=== PATIENT | female | born 1995 | race Caucasian/White ===

== ENCOUNTER 2020-05-11 15:41 | Emergency (ER) | payer OTHER, SELFPAY ==
[2020-05-11 15:55] VITALS: BP 142/75; PULSE 98; RESP 14; TEMP 36.8; O2SAT 95; BMI 40.6
--- NOTE | 2020-05-11 16:15 | DI.US.S_ITS ---
PROCEDURE: US OB <= 14 WEEKS FETUS INDICATIONS: preg bleeding OUTSIDE/PRIOR DATING DATA: Last menstrual period (LMP): 03/15/2020 LMP-based estimated date of delivery (NEHEMIAS): 12/30/2020 TECHNIQUE: Real-time scanning was performed of the fetus and maternal pelvic organs, with image documentation. Endovaginal scanning was also performed to better visualize the fetus and maternal ovaries. COMPARISON: None. FINDINGS: Embryo: Single living intrauterine with a pole present. The crown-rump length measures 1.09 cm corresponding with an estimated gestational age of 7 weeks 1 day. heart rate is 139 beats per minute. No perigestational hemorrhage identified. Measurement variability in dating: +/- 4 weeks by LMP, +/- 7 days by mean sac diameter (use before 6 weeks gestation if crown-rump length not able to be measured), +/- 5 days by crown-rump length (up to 8 weeks 6 days gestation), +/- 7 days by crown-rump length (up to 13 weeks 6 days gestation). Maternal organs: Normal grayscale and Doppler appearance of the ovaries. The right ovary measures 4.1 x 3.4 x 2.8 cm. The left ovary measures 3.0 x 2.6 x 1.9 cm . Limited images through the kidneys demonstrate no hydronephrosis. Right kidney length of 10.8 cm. IMPRESSION: Single living intrauterine . Estimated age of 7 weeks 1 day by today's crown-rump length. heart rate of 139 beats per minute. Dictated by: Maurice Carreon M.D. on 05/11/2020 at 16:54 Approved by: Maurice Carreon M.D. on 05/11/2020 at 16:57
[2020-05-11 16:20] LABS: Bacteria Urine Many (>30); Culture Indicated Urine Cult Not Indicated; RBC Urine 0-1/HPF (0-5/HPF); Squamous Epithelial Cell Urine 10-30 /HPF (0-5/HPF); WBC Urine 1-5/HPF (0-5/HPF)
--- NOTE | 2020-05-11 16:51 | ED.FEMALEGU ---
HPI - Female Genitourinary General Chief complaint: Vaginal Bleeding Stated complaint: 7wks preg, spotting, cramping, back pain Time Seen by Provider: 05/11/20 16:05 Source: patient Mode of arrival: Ambulatory Limitations: no limitations History of Present Illness HPI Narrative: Patient is a 25-year-old female presenting with vaginal spotting and cramping that started today. she states that she is followed at the [facility]. She required fertility medication but not IVF or IUI. Complaint: vaginal bleeding Related Data Allergies Allergy/AdvReac Type Severity Reaction Status Date / Time No Known Drug Allergies Allergy Verified 05/11/20 15:55 Review of Systems Review of Systems Narrative: GENERAL: Denies chills, fatigue, malaise, fever, sweats, travel HEENT: Denies sinus pain, ear pain, sore throat, difficulty swallowing, neck pain RESPIRATORY: Denies dyspnea, cough, wheezing, hemoptysis, sputum. CARDIOVASCULAR: Denies chest pain, palpitations, orthopnea, edema GASTROINTESTINAL: Denies nausea, vomiting, abdominal pain, diarrhea, constipation, melena. PARI MUTUEL CLERK: See HPI : Denies dysuria, frequency, incontinence, hematuria, urinary retention, flank pain. MUSCULOSKELETAL: Denies weakness, joint pain, or bony pain SKIN: No rash, no erythema, no pruritus NEUROLOGIC: Denies weakness, dizziness, headache, numbness, change in speech, confusion PSYCHIATRIC: No concerning psychosocial issues. 12 point review of systems is negative except for those stated above and HPI Patient History Medical History Infertility (Acute) alcohol intake frequency: holidays/special occasions only Substance Use Type: does not use Exam Initial Vital Signs Initial Vital Signs: Vital Signs Temperature 98.3 F 05/11/20 15:55 Pulse Rate 98 H 05/11/20 15:55 Respiratory Rate 14 05/11/20 15:55 Blood Pressure 142/75 H 05/11/20 15:55 Pulse Oximetry 95 05/11/20 15:55 GENERAL: Overweight well-appearing young female HEENT: Head atraumatic,EOMI, pupils reactive, face symmetric, moist mucous membranes CARDIOVASCULAR: Regular rate and rhythm without murmurs, rubs or gallops. RESPIRATORY: Breath sounds equal bilaterally, no wheezes rales or rhonchi. ABDOMEN: Soft, nontender. Normoactive bowel sounds all 4 quadrants. No guarding or rebound. EXTREMITIES: Normal range of motion, no clubbing or edema. Neurovascularly intact NEUROLOGICAL: Alert and oriented x4.Normal gait and speech. SKIN: Warm, dry, no laceration, no petechiae, no rashes or lesions. Course Orders Ordered: ED Orders 05/11/20 15:56 Urine Microscopic Stat 05/11/20 16:15 US OB <= 14 weeks fetus Stat 05/11/20 16:55 ABO RH Type Stat Complete Blood Count AUTO DIFF Stat Comprehensive Metabolic Panel Stat HCG Quantitative /Beta subunit Stat Vital Signs Vital signs: Vital Signs - 8 hr 05/11/20 15:55 Temperature 98.3 F Pulse Rate 98 H Respiratory Rate 14 Blood Pressure 142/75 H Pulse Oximetry 95 MDM - Female Genitourinary Lab Data Attestation: I reviewed the patient's lab results. Result diagrams: 05/11/20 16:55 05/11/20 16:55 Labs: Lab Results 05/11/20 05/11/20 05/11/20 Range/Units 15:56 16:55 16:55 WBC 10.1 (4.5-11.0) X10^3/uL RBC 4.48 (4.0-5.2) X10^6/uL Hgb 12.6 (12.0-16.0) g/dL Hct 37.2 (36-46) % MCV 83.0 (80-100) fL MCH 28.0 (26-34) PG MCHC 33.8 (30-36) % RDW 14.3 (11.6-14.8) % Plt Count 229 (150-400) X10^3/uL Neut % (Auto) 65.1 (50-75) % Lymph % (Auto) 24.3 L (25-40) % [place] % (Auto) 8.8 (3-14) % Eos % (Auto) 0.8 L (2-4) % Baso % (Auto) 1.0 (0-2) % Neut # (Auto) 6500 (1223-9168) /uL Lymph # (Auto) 2400 (4056-8520) /uL [place] # (Auto) 900 (0-900) /uL Eos # (Auto) 100 (0-450) /uL Baso # (Auto) 100 (0-100) /uL Sodium 135 L (137-145) mmol/L Potassium 3.7 (3.4-5.1) mmol/L Chloride 105 (98-107) mmol/L Carbon Dioxide 24 (22-32) mmol/L BUN 9 (7-17) mg/dL Creatinine 0.52 (0.52-1.04) mg/dL Estimated GFR > 60.0 (>60) mL/min BUN/Creatinine Ratio 17.3 (6-22) Glucose 96 (70-100) mg/dL Calcium 9.1 (8.4-10.2) mg/dL Total Bilirubin 0.3 (0.2-1.3) mg/dL AST 34 (14-36) IU/L ALT 20 (<35) IU/L Alkaline Phosphatase 71 (38-126) U/L Total Protein 6.7 (6.3-8.2) g/dL Albumin 3.8 (3.5-5.0) g/dL Globulin 2.9 (1.7-4.1) g/dL Albumin/Globulin Ratio 1.3 (1.0-2.8) HCG, Quant 29277 mIU/mL Urine RBC 0-1/hpf (0-5/HPF) Urine WBC 1-5/hpf (0-5/HPF) Ur Squamous Epith Cells 10-30 /hpf H (0-5/HPF) Urine Bacteria Many (>30) H (None) Ur Culture Indicated? Cult not indicated Blood Type 05/11/20 Range/Units 16:55 WBC (4.5-11.0) X10^3/uL RBC (4.0-5.2) X10^6/uL Hgb (12.0-16.0) g/dL Hct (36-46) % MCV (80-100) fL MCH (26-34) PG MCHC (30-36) % RDW (11.6-14.8) % Plt Count (150-400) X10^3/uL Neut % (Auto) (50-75) % Lymph % (Auto) (25-40) % [place] % (Auto) (3-14) % Eos % (Auto) (2-4) % Baso % (Auto) (0-2) % Neut # (Auto) (9183-1479) /uL Lymph # (Auto) (2518-2087) /uL [place] # (Auto) (0-900) /uL Eos # (Auto) (0-450) /uL Baso # (Auto) (0-100) /uL Sodium (137-145) mmol/L Potassium (3.4-5.1) mmol/L Chloride (98-107) mmol/L Carbon Dioxide (22-32) mmol/L BUN (7-17) mg/dL Creatinine (0.52-1.04) mg/dL Estimated GFR (>60) mL/min BUN/Creatinine Ratio (6-22) Glucose (70-100) mg/dL Calcium (8.4-10.2) mg/dL Total Bilirubin (0.2-1.3) mg/dL AST (14-36) IU/L ALT (<35) IU/L Alkaline Phosphatase (38-126) U/L Total Protein (6.3-8.2) g/dL Albumin (3.5-5.0) g/dL Globulin (1.7-4.1) g/dL Albumin/Globulin Ratio (1.0-2.8) HCG, Quant mIU/mL Urine RBC (0-5/HPF) Urine WBC (0-5/HPF) Ur Squamous Epith Cells (0-5/HPF) Urine Bacteria (None) Ur Culture Indicated? Blood Type A Positive Point of Care Testing Test Results Positive Urine Dip Bedside Urine Glucose Negative Bedside Urine Bilirubin - Negative Bedside Urine Ketone + 15 Urine Specific [place] 1.020 Bedside Urine Occult Blood - Negative Bedside Urine pH 6.0 Bedside Urine Protein - Negative Bedside Urine Urobilinogen - Negative Bedside Urine Nitrite - Negative Bedside Urine Leukocytes + 70 Esterase Imaging Data US - OB: Radiologist's Impression: PROCEDURE: US OB <= 14 WEEKS FETUS INDICATIONS: preg bleeding OUTSIDE/PRIOR DATING DATA: Last menstrual period (LMP): 03/15/2020 LMP-based estimated date of delivery (NEHEMIAS): 12/30/2020 TECHNIQUE: Real-time scanning was performed of the fetus and maternal pelvic organs, with image documentation. Endovaginal scanning was also performed to better visualize the fetus and maternal ovaries. COMPARISON: None. FINDINGS: Embryo: Single living intrauterine with a pole present. The crown-rump length measures 1.09 cm corresponding with an estimated gestational age of 7 weeks 1 day. heart rate is 139 beats per minute. No perigestational hemorrhage identified. Measurement variability in dating: +/- 4 weeks by LMP, +/- 7 days by mean sac diameter (use before 6 weeks gestation if crown-rump length not able to be measured), +/- 5 days by crown-rump length (up to 8 weeks 6 days gestation), +/- 7 days by crown-rump length (up to 13 weeks 6 days gestation). Maternal organs: Normal grayscale and Doppler appearance of the ovaries. The right ovary measures 4.1 x 3.4 x 2.8 cm. The left ovary measures 3.0 x 2.6 x 1.9 cm . Limited images through the kidneys demonstrate no hydronephrosis. Right kidney length of 10.8 cm. IMPRESSION: Single living intrauterine . Estimated age of 7 weeks 1 day by today's crown-rump length. heart rate of 139 beats per minute. Dictated by: Maurice Carreon M.D. on 05/11/2020 at 16:54 Discharge Plan Departure Patient Disposition: Home Clinical Impression: Threatened Discharge Date/Time: 05/11/20 19:06 Instructions: DI for Threatened Activity Restrictions/Additional Instructions: *You have been diagnosed with threatened *What to do: Need to have HCG recheck in 48 hours. Baby overall looks healthy with a good strong heart rate. However recommend pelvic rest nothing in her out of the drain a in till seen by Ob. *Continue to take medications as directed Tylenol 1000 mg every 6 hours if needed for pain *Follow up with your primary care provider in 2-3 days *Return to ER if you should have of bleeding more than 1 heavy pad an hour, increased pain, passing out or any new, worsening or concerning symptoms
[2020-05-11 17:18] LABS: Add Manual Diff / Slide Review NO; Basophils Absolute Auto 100 /uL (0-100); Eosinophils Absolute Auto 100 /uL (0-450); Eosinophils Percent Auto 0.8 % (2-4); Hematocrit 37.2 % (36-46); Hemoglobin 12.6 g/dL (12.0-16.0); Lymphocytes Absolute Auto 2400 /uL (1100-4500); Lymphocytes Percent Auto 24.3 % (25-40); Mean Corpuscular HGB Conc 33.8 % (30-36); Monocytes Absolute Auto 900 /uL (0-900); Monocytes Percent Auto 8.8 % (3-14); Neutrophils Absolute Auto 6500 /uL (1500-7000); Neutrophils Percent Auto 65.1 % (50-75); Platelet Count 229 X10^3/uL (150-400); Red Blood Cell Count 4.48 X10^6/uL (4.0-5.2); Red Cell Distribution Width 14.3 % (11.6-14.8); White Blood Cell Count 10.1 X10^3/uL (4.5-11.0)
[2020-05-11 18:09] LABS: Alanine Aminotransferase 20 IU/L (<35); Albumin 3.8 g/dL (3.5-5.0); Albumin Globulin Ratio 1.3 (1.0-2.8); Alkaline Phosphatase 71 U/L (38-126); Aspartate Aminotransferase 34 IU/L (14-36); BUN Creatinine Ratio 17.3 (6-22); Bilirubin Total 0.3 mg/dL (0.2-1.3); Blood Urea Nitrogen 9 mg/dL (7-17); Calcium 9.1 mg/dL (8.4-10.2); Carbon Dioxide 24 mmol/L (22-32); Chloride 105 mmol/L (98-107); Estimated Glomerular Filt Rate > 60.0 mL/min (>60); Globulin 2.9 g/dL (1.7-4.1); Glucose 96 mg/dL (70-100); HEMOLYSIS < 15 (0-50); Potassium 3.7 mmol/L (3.4-5.1); Sodium 135 mmol/L (137-145); Total Protein 6.7 g/dL (6.3-8.2)
[2020-05-11 18:51] LABS: HCG Quantitative /Beta subunit 53272 mIU/mL
[2020-05-11 18:56] VITALS: BP 113/66; PULSE 70; O2SAT 100
== END 2020-05-11 19:06 | disposition home or self-care (01) ==
PROVIDERS: Emergency Provider Emergency Medicine
DX: O20.0 Threatened abortion (principal)
CPT/HCPCS: 76801; 80053; 81003; 81015; 81025; 84702; 85025; 86900; 86901; 99282; 99284

== ENCOUNTER → 2020-05-31 14:13 | Outpatient (CLI) | payer OTHER, SELFPAY ==
[2020-05-31 15:38] LABS: Add Manual Diff / Slide Review NO; Basophils Absolute Auto 0 /uL (0-100); Basophils Percent Auto 0.4 % (0-2); Eosinophils Absolute Auto 100 /uL (0-450); Eosinophils Percent Auto 0.6 % (2-4); Hematocrit 36.7 % (36-46); Hemoglobin 12.3 g/dL (12.0-16.0); Lymphocytes Absolute Auto 1900 /uL (1100-4500); Lymphocytes Percent Auto 17.2 % (25-40); Mean Corpuscular HGB Conc 33.5 % (30-36); Mean Corpuscular Hemoglobin 28.1 PG (26-34); Mean Corpuscular Volume 83.9 fL (80-100); Monocytes Absolute Auto 800 /uL (0-900); Neutrophils Absolute Auto 8400 /uL (1500-7000); Neutrophils Percent Auto 74.8 % (50-75); Platelet Count 232 X10^3/uL (150-400); Red Blood Cell Count 4.37 X10^6/uL (4.0-5.2); White Blood Cell Count 11.3 X10^3/uL (4.5-11.0)
[2020-05-31 20:36] LABS: Urine Chlamydia NOT DETECTED; Urine N gonorrhoeae NOT DETECTED
[2020-06-02 08:25] LABS: RPR Screen Non Reactive (Non Reactive)
[2020-06-02 13:00] LABS: Varicella IgG Antibody 1879 index (Immune >165)
[2020-06-02 17:23] LABS: HIV 1 & 2 Ab/Ag 4th Gen Combo NEGATIVE (NEGATIVE); Hep C Virus Ab w/Reflex Quant NEGATIVE s/c (NEGATIVE); Hepatitis B Surface Antigen NEGATIVE s/c (NEGATIVE); Rubella Antibody IgG 88.7 IU/mL (>15)
== END ==
PROVIDERS: Referring Provider Obstetrics & Gynecology; Visit Provider Obstetrics & Gynecology
DX: Z34.01 Encounter for supervision of normal first pregnancy, first trimester (principal); Z3A.09 9 weeks gestation of pregnancy
CPT/HCPCS: 36415; 80055; 86787; 86803; 86850; 86900; 86901; 87389; 87491; 87591

== ENCOUNTER → 2020-07-30 12:12 | Outpatient (CLI) | payer OTHER, SELFPAY ==
[2020-08-01 18:47] LABS: AFP Value 37.8 ng/mL (.); Gest Age on Col Date 18.1 weeks (.); Insulin Dep Diabetes No (.); OSBR Risk 1IN 10000 (.); Results Report (.); Test Results *Screen Negative* (.)
[2020-08-05 07:48] LABS: PDF SEE EMR
== END ==
PROVIDERS: Referring Provider Obstetrics & Gynecology; Visit Provider Obstetrics & Gynecology
DX: Z34.02 Encounter for supervision of normal first pregnancy, second trimester (principal); Z3A.18 18 weeks gestation of pregnancy
CPT/HCPCS: 36415; 82105

== ENCOUNTER → 2020-08-06 10:36 | Outpatient (CLI) | payer OTHER, SELFPAY ==
--- NOTE | 2020-08-06 10:37 | DI.US.S_ITS ---
PROCEDURE: US OB >= 14 WEEKS FETUS INDICATIONS: ANATOMY SCAN OUTSIDE/PRIOR DATING DATA: Last menstrual period (LMP): 03/25/20 LMP-based estimated date of delivery (NEHEMIAS): 12/30/20 First dating scan (date and location): 05/11/20 Estimated date of delivery (NEHEMIAS) from first dating scan: 12/27/20 TECHNIQUE: Real-time scanning was performed of the fetus, with image documentation and biometric measurements. Endovaginal scanning: Not performed COMPARISON: [facility], OB <= 14 WEEKS FETUS, 05/31/2020, 13:45. [facility], OB <= 14 WEEKS FETUS, 05/11/2020, 17:05. [facility], OB >= 14 WEEKS FETUS, 07/30/2020, 12:06. FINDINGS: General: A single living intrauterine gestation is present. Presentation: Variable. Placenta: Lower placental edge is seen 0.4 cm from internal cervical os which qualifies as low lying placenta Amniotic fluid index: 18.9 cm, normal range is 5-24 cm. heart rate: 145 beats per minute. Maternal cervical canal: 4.8 cm long. Normal lower limit is 2.5 cm. biometrics: Biparietal diameter: 4.5 cm, 19 weeks 3 days Head circumference: 16.4 cm, 19 weeks 1 day Abdominal circumference: 15.0 cm, 20 weeks 2 days Femur length: 3.1 cm, 19 weeks 4 days Estimated gestational age from initial scan: 19 weeks 4 days Composite gestational age from present scan: 19 weeks 4 days Estimated weight and percentile: 315 g, 60th percentile. Measurement variability for biometric dating: +/- 7 days from 14 weeks to 15 weeks 6 days gestation, +/- 10 days from 16 weeks to 21 weeks 6 days gestation, +/- 2 weeks from 22 weeks to 27 weeks 6 days gestation, +/- 3 weeks for 28 weeks gestation or later. weight reference: 4500 g or EFW >90/95% is considered macrosomia or large for gestational age. EFW <10% is small for gestational age. EFW 5% or less is considered intra-uterine growth restriction. Anatomic survey: Neuro: Ventricles are non-dilated at less than 10 mm. Cisterna magna is normal at 3-11 mm. Cerebellum is normal in size and morphology. Nuchal skin fold: Normal at less than 6 mm between 14-21 weeks gestational age. Face: Nose and lips, facial profile are normal. Spine: No evidence for spina bifida. Heart: 4-chambered heart is present, with normal ventricular outflow tracts. Diaphragm: Diaphragm is intact. Stomach: Left-sided stomach is present. Kidneys: No hydronephrosis. Normal is less than 5 mm in 2nd trimester, less than 7 mm in 3rd trimester. Cord: 3-vessel cord has orthotopic insertion. Bladder: Normal in size. Extremities: All 4 extremities identified. IMPRESSION: Single living intrauterine fetus demonstrating expected interval growth Low lying placenta. Recommend follow-up Normal anatomic survey Dictated by: Israel Tracey M.D. on 08/06/2020 at 15:53 Approved by: Israel Tracey M.D. on 08/06/2020 at 16:18
== END ==
PROVIDERS: Referring Provider Obstetrics & Gynecology; Visit Provider Obstetrics & Gynecology
DX: Z34.02 Encounter for supervision of normal first pregnancy, second trimester (principal); Z3A.19 19 weeks gestation of pregnancy
CPT/HCPCS: 76811

== ENCOUNTER → 2020-09-02 16:25 | Outpatient (CLI) | payer OTHER, SELFPAY | PROVIDERS: Referring Provider Obstetrics & Gynecology; Visit Provider Obstetrics & Gynecology | DX: Z34.02 Encounter for supervision of normal first pregnancy, second trimester (principal); Z3A.26 26 weeks gestation of pregnancy | CPT/HCPCS: 87086 ==

== ENCOUNTER → 2020-10-02 09:44 | Outpatient (CLI) | payer OTHER, SELFPAY ==
[2020-10-02 11:33] LABS: Hematocrit 33.2 % (36-46); Hemoglobin 11.3 g/dL (12.0-16.0)
[2020-10-02 11:54] LABS: GTT (PREG) 1 Hour PP 50gm Dose 100 mg/dL (76-139)
== END ==
PROVIDERS: Referring Provider Obstetrics & Gynecology; Visit Provider Obstetrics & Gynecology
DX: Z34.02 Encounter for supervision of normal first pregnancy, second trimester (principal); Z3A.26 26 weeks gestation of pregnancy
CPT/HCPCS: 36415; 82950; 85014; 85018

== ENCOUNTER → 2020-10-04 14:20 | Outpatient (CLI) | payer OTHER, SELFPAY ==
[2020-10-04 15:44] LABS: Add Manual Diff / Slide Review NO; Basophils Absolute Auto 0 /uL (0-100); Basophils Percent Auto 0.3 % (0-2); Eosinophils Absolute Auto 100 /uL (0-450); Eosinophils Percent Auto 0.6 % (2-4); Hematocrit 33.9 % (36-46); Hemoglobin 11.4 g/dL (12.0-16.0); Lymphocytes Absolute Auto 1900 /uL (1100-4500); Lymphocytes Percent Auto 16.7 % (25-40); Mean Corpuscular HGB Conc 33.7 % (30-36); Mean Corpuscular Hemoglobin 29.1 PG (26-34); Mean Corpuscular Volume 86.4 fL (80-100); Monocytes Absolute Auto 900 /uL (0-900); Monocytes Percent Auto 7.4 % (3-14); Neutrophils Absolute Auto 8700 /uL (1500-7000); Platelet Count 190 X10^3/uL (150-400); Red Blood Cell Count 3.93 X10^6/uL (4.0-5.2); Red Cell Distribution Width 15.7 % (11.6-14.8); White Blood Cell Count 11.6 X10^3/uL (4.5-11.0)
[2020-10-04 16:12] LABS: Alanine Aminotransferase 16 IU/L (<35); Albumin 3.4 g/dL (3.5-5.0); Albumin Globulin Ratio 1.2 (1.0-2.8); Alkaline Phosphatase 87 U/L (38-126); Aspartate Aminotransferase 29 IU/L (14-36); BUN Creatinine Ratio 18.4 (6-22); Blood Urea Nitrogen 7 mg/dL (7-17); Calcium 9.3 mg/dL (8.4-10.2); Carbon Dioxide 23 mmol/L (22-32); Chloride 106 mmol/L (98-107); Estimated Glomerular Filt Rate > 60.0 mL/min (>60); Globulin 2.9 g/dL (1.7-4.1); Glucose 79 mg/dL (70-100); HEMOLYSIS < 15 (0-50); Lactate Dehydrogenase 404 U/L (313-618); Potassium 3.7 mmol/L (3.4-5.1); Sodium 134 mmol/L (137-145); Total Protein 6.3 g/dL (6.3-8.2); Uric Acid 4.3 mg/dL (2.5-6.2)
[2020-10-04 16:17] LABS: Bilirubin Total < 0.1 mg/dL (0.2-1.3)
[2020-10-04 16:40] LABS: Protein (Total) Urine Random 13 mg/dL (0-12); Protein Creatinine Ratio Urine 0.35 GRAM/24H
== END ==
PROVIDERS: Referring Provider Obstetrics & Gynecology; Visit Provider Obstetrics & Gynecology
DX: H53.9 Unspecified visual disturbance (principal)
CPT/HCPCS: 36415; 80053; 82570; 83615; 84156; 84550; 85025

== ENCOUNTER → 2020-10-10 07:59 | Outpatient (CLI) | payer OTHER, SELFPAY ==
[2020-10-10 10:01] LABS: Collection Time Urine 24 Hours; Protein (Total) Urine Random 12 mg/dL (0-12); Total Protein 24 Hour Urine 294 mg/day (42-225); Total Volume Urine 2450 mL
== END ==
PROVIDERS: Referring Provider Obstetrics & Gynecology; Visit Provider Obstetrics & Gynecology
DX: Z34.90 Encounter for supervision of normal pregnancy, unspecified, unspecified trimester (principal); R80.9 Proteinuria, unspecified
CPT/HCPCS: 84156

== ENCOUNTER → 2020-10-23 09:39 | Outpatient (CLI) | payer OTHER, SELFPAY ==
--- NOTE | 2020-10-23 09:40 | DI.US.S_ITS ---
PROCEDURE: US OB LIMITED INDICATIONS: Check placenta location, growth, and position OUTSIDE/PRIOR DATING DATA: Last menstrual period (LMP): 03/25/2020. LMP-based estimated date of delivery (NEHEMIAS): 12/30/2020 . First dating scan (date and location): 05/11/2020 . Estimated date of delivery (NEHEMIAS) from first dating scan: 12/27/2020 . TECHNIQUE: Real-time scanning was performed of the fetus, with image documentation and biometric measurements. Endovaginal scanning: No COMPARISON: [facility], US, US OB >= 14 WEEKS FETUS, 10/14/2020, 14:20. FINDINGS: General: A single living intrauterine gestation is present. Presentation: Vertex. Placenta: Placental position is posterior fundal , without previa. Amniotic fluid index: 14.9 cm, normal range is 5-24 cm. heart rate: 133 beats per minute. Maternal cervical canal: 3.9 cm long. Normal lower limit is 2.5 cm. biometrics: Biparietal diameter: 31 weeks 2 days Head circumference: 32 weeks 4 days Abdominal circumference: 32 weeks 6 days Femur length: 32 weeks 3 days Estimated gestational age from initial scan: 30 weeks 5 days Composite gestational age from present scan: 32 weeks 2 days Estimated weight and percentile: 2008 g; 93rd percentile Measurement variability for biometric dating: +/- 7 days from 14 weeks to 15 weeks 6 days gestation, +/- 10 days from 16 weeks to 21 weeks 6 days gestation, +/- 2 weeks from 22 weeks to 27 weeks 6 days gestation, +/- 3 weeks for 28 weeks gestation or later. weight reference: 4500 g or EFW >90/95% is considered macrosomia or large for gestational age. EFW <10% is small for gestational age. EFW 5% or less is considered intra-uterine growth restriction. Other: Not applicable. IMPRESSION: 1. Single living IUP redemonstrated and interval growth is upper limits of normal. 2. Resolved low-lying placenta. Dictated by: Matthew Viera A Interpreted: Corrie Begum MD on 10/23/2020 at 14:37 Approved by: Corrie Begum MD, PhD on 10/23/2020 at 15:36
== END ==
PROVIDERS: Referring Provider Obstetrics & Gynecology; Visit Provider Obstetrics & Gynecology
DX: O44.42 Low lying placenta NOS or without hemorrhage, second trimester (principal)
CPT/HCPCS: 76815

== ENCOUNTER → 2020-12-03 15:39 | Outpatient (CLI) | payer OTHER, SELFPAY ==
[2020-12-04 11:41] LABS: Strep Grp B PCR POS for Grp B Strep
== END ==
PROVIDERS: Visit Provider Obstetrics & Gynecology
DX: Z34.03 Encounter for supervision of normal first pregnancy, third trimester (principal); Z3A.36 36 weeks gestation of pregnancy
CPT/HCPCS: 87653

== ENCOUNTER 2020-12-30 17:21 | Observation (INO) | payer OTHER, SELFPAY ==
[2020-12-30 18:53] LABS: Add Manual Diff / Slide Review NO; Basophils Absolute Auto 0 /uL (0-100); Basophils Percent Auto 0.4 % (0-2); Eosinophils Absolute Auto 100 /uL (0-450); Eosinophils Percent Auto 0.5 % (2-4); Hematocrit 35.1 % (36-46); Hemoglobin 11.7 g/dL (12.0-16.0); Lymphocytes Absolute Auto 1600 /uL (1100-4500); Lymphocytes Percent Auto 15.3 % (25-40); Mean Corpuscular HGB Conc 33.5 % (30-36); Mean Corpuscular Hemoglobin 28.9 PG (26-34); Mean Corpuscular Volume 86.3 fL (80-100); Monocytes Absolute Auto 1100 /uL (0-900); Monocytes Percent Auto 10.5 % (3-14); Neutrophils Absolute Auto 7700 /uL (1500-7000); Neutrophils Percent Auto 73.3 % (50-75); Platelet Count 178 X10^3/uL (150-400); Red Blood Cell Count 4.07 X10^6/uL (4.0-5.2); Red Cell Distribution Width 16.1 % (11.6-14.8); White Blood Cell Count 10.5 X10^3/uL (4.5-11.0)
[2020-12-30] MEDS: DINOPROSTONE VAG (CERVIDIL) 10 MG VAG (19:16)
--- NOTE | 2020-12-30 19:20 | PM.OBHP.1 ---
OB HPI Date/Time Date of admission: 12/30/20 Date Patient Seen: 12/30/20 Time Patient Seen: 19:20 History of Present Condition Chief complaint: NST : 1 Para: 0 Estimated Date of Delivery: 12/30/20 Estimated Gestational Age (weeks): 40 Narrative: Mana Escobar is a 25 year old @40+0 admitted for induction of labor for postdates in the setting of EFW of 8#10. She reports good movement, denies LOF or VB, and denies any other symptoms. Her was conceived with letrozole and IUI, and her has been obstetrically complicated only by obesity. 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 She reports a family history of vaginal delvieries of 8-9#, though no other contributory medical, surgical, family, or social history. Indications Indication for induction OB: post dates History of Present care: good care Dating criteria: based on 1st trimester US only Ultrasounds: abnormal US findings (low lying placenta, resolved) Preadmission Labs Blood type: A (+) positive -: Antibody screen: negative, GBS status: positive, HBsAG: negative, HIV: negative and RPR/VDLR: negative -: Chlamydia screen: not detected and Gonorrhea screen: not detected -: Rubella: immune and Varicella: immune Integrated screen: declined Urine: no growth 1 hr GTT: 100 Evaluation Evaluation Baseline heart rate: 155 Variability: Moderate (11-25) monitor accelerations: Present Monitor Decelerations: Absent Category of Tracing: Reactive Status: Category l Cervical dilation (cm): 1 Cervical effacement (%): 50 station: -3 Laboratory results: Laboratory Tests 12/30/20 18:49 WBC 10.5 RBC 4.07 Hgb 11.7 L Hct 35.1 L MCV 86.3 MCH 28.9 MCHC 33.5 RDW 16.1 H Plt Count 178 Neut % (Auto) 73.3 Lymph % (Auto) 15.3 L [place] % (Auto) 10.5 Eos % (Auto) 0.5 L Baso % (Auto) 0.4 Neut # (Auto) 7700 H Lymph # (Auto) 1600 [place] # (Auto) 1100 H Eos # (Auto) 100 Baso # (Auto) 0 PFSH Medical History Abnormal Pap smear of cervix (~06/2019) ADHD (~2002) Anxiety (~2017) Asthma Bronchitis (~2008) Depression (~2017) 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 Grandfather Alcoholic Family estrangement Grandmother Family estrangement Grandfather Family estrangement Brother Depression Anxiety Hearing loss of both ears Social History marital status: number of children: 0 household members: spouse lives independently: No caregiver/support person: No housing: house pets and animals: Yes (1 dog, 1 cat. 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 Formerly vaping & edibles 2-3x/week to help insomnia or just weekend.) during the past year weight has: increased > 10 lbs well-balanced diet: daily or most days caffeine: No Type(s) of exercise: walking (Started in December 2019, 1-2 miles daily. ) and yoga frequency: 3-4 times per week duration: 30-45 minutes/day Meds Home Medications and Allergies Home Medications Medication Instructions Recorded Confirmed Type albuterol sulfate 90 mcg/actuation 2 puff INHALATION Q4-6H PRN 10/16/20 05/24/21 History aerosol inhaler cholecalciferol (vitamin D3) 125 125 mcg PO DAILY 05/24/20 12/30/20 History mcg (5,000 unit) capsule fish, borage, flaxseed oils-omega cap PO 05/24/20 05/24/20 History 3,6,9 comb no.1 1,200 mg capsule prenat.vits,mavis,egm-dgqy-lvaaq 1 tab PO DAILY 05/24/20 12/30/20 History valacyclovir 500 mg tablet 500 mg PO DAILY #30 tab 12/03/20 12/30/20 Rx Allergies Allergy/AdvReac Type Severity Reaction Status Date / Time [place] And Derivatives Allergy Intermediate Numb lips, Verified 05/24/20 15:49 canker sores. Hives if used topically. mold Allergy Intermediate Triggers Verified 05/24/20 17:17 asthma. tree and shrub pollen Allergy Intermediate Triggers Verified 05/24/20 17:16 asthma. Exam Vital Signs (past 8 hours): 120/69 HR 89 Const General: cooperative, healthy appearing and comfortable Resp Effort & Inspection: normal respiratory effort Auscultation: clear to auscultation bilaterally Cardio Rate: regular rate Rhythm: regular rhythm GI Palpation: soft and No tender Objective Labs Result Diagrams: 12/30/20 18:49 Labs: Laboratory Results - last 24 hr 12/30/20 18:49 WBC 10.5 RBC 4.07 Hgb 11.7 L Hct 35.1 L MCV 86.3 MCH 28.9 MCHC 33.5 RDW 16.1 H Plt Count 178 Neut % (Auto) 73.3 Lymph % (Auto) 15.3 L [place] % (Auto) 10.5 Eos % (Auto) 0.5 L Baso % (Auto) 0.4 Neut # (Auto) 7700 H Lymph # (Auto) 1600 [place] # (Auto) 1100 H Eos # (Auto) 100 Baso # (Auto) 0 Assessment and Plan Assessment and Plan Assessment and Plan narrative: This patient is admitted for induction of labor for postdates. She will undergo cervical ripening with cervidil overnight. - PCN for GBS ppx, pitocin per protocol in AM - monitoring per protocol
[2020-12-30 19:56] LABS: COVID19 - ADMIT (NP swab/PCR) Negative (Negative)
[2020-12-30 22:07] VITALS: BP 125/72
--- NOTE | 2020-12-31 08:28 | PM.OBPNLAB ---
Date/Time Date Patient Seen: 12/31/20 Time Patient Seen: 10:20 Pain Control Pain control: tolerating well Pelvic Exam Dilation (cm): 1 Effacement (%): 50 station: -3 Amniotic membrane status: Intact Comments: Exam unchanged after 12 hours of cervidil. Status Heart Rate Baseline: 150 Monitor Accelerations: Present Monitor Decelerations: Absent Monitor Variability: Moderate Comments: Copious movement, palable and audible. Assessment and Plan Comments: This patient is a 25yo @40+1, admitted for induction of labor for postdates. The patient has had an otherwise uncomplicated and reassuring testing. Staffing levels on L&D prevent her induction today until late afternoon or possibly tomorrow, and after discussion of options, risks, and benefits, the patient opts for discharge home rather than remaining admitted for a long period of expectant management. We discussed readmission tomorrow evening for a different ripening agent, and discussed precautions at length for return such as decreased movement, SROM, or labor. Patient and partner vocalized understanding.
[2020-12-31] MEDS: LACTATED RINGERS 1,000 ML 100 ML IV (08:35)
[2020-12-31] MEDS: PENICILLIN G POTASSIUM 5,000,000 UNIT in DEXTROSE 5% IN WATER 250 ML IV (08:37)
--- NOTE | 2021-01-02 12:57 | PM.OBPNLAB ---
Date/Time Date Patient Seen: 01/02/21 Time Patient Seen: 12:58 Pain Control Pain control: epidural Pelvic Exam Dilation (cm): 8 Effacement (%): 100 station: -3 Amniotic membrane status: Intact Status status: Category l
== END 2020-12-31 11:05 | disposition home or self-care (01) ==
PROVIDERS: Admitting Provider Obstetrics & Gynecology; Referring Provider Obstetrics & Gynecology; Visit Provider Obstetrics & Gynecology
DX: O48.0 Post-term pregnancy (principal); O98.313 Other infections with a predominantly sexual mode of transmission complicating pregnancy, third trimester; A60.00 Herpesviral infection of urogenital system, unspecified; Z3A.40 40 weeks gestation of pregnancy
CPT/HCPCS: 36415; 59025; 59050; 59200; 85025; 86850; 86900; 86901; 87635; 96360; C9803; G0378; G0379; J2540

== ENCOUNTER 2021-01-01 19:26 | Outpatient (CLI) | payer OTHER, SELFPAY | END 2021-01-01 20:45 | disposition home or self-care (01) | LOC: LABOR 19:33 → OB 01-02 06:55 | PROVIDERS: Referring Provider Specialist; Visit Provider Specialist | DX: O48.0 Post-term pregnancy (principal); Z3A.40 40 weeks gestation of pregnancy | CPT/HCPCS: 59025; G0378; G0379 ==

== ENCOUNTER 2021-01-02 00:56 | Inpatient (IN) | payer OTHER, SELFPAY ==
[2021-01-02] MEDS: OXYTOCIN PREMIX 30 UNIT/500 ML PLAST..BAG IV (06:25)
[2021-01-02 06:53] LABS: Add Manual Diff / Slide Review NO; Basophils Absolute Auto 100 /uL (0-100); Basophils Percent Auto 0.6 % (0-2); Eosinophils Absolute Auto 0 /uL (0-450); Eosinophils Percent Auto 0.2 % (2-4); Hematocrit 36.5 % (36-46); Hemoglobin 12.1 g/dL (12.0-16.0); Lymphocytes Absolute Auto 1400 /uL (1100-4500); Lymphocytes Percent Auto 11.7 % (25-40); Mean Corpuscular HGB Conc 33.3 % (30-36); Mean Corpuscular Hemoglobin 28.7 PG (26-34); Mean Corpuscular Volume 86.3 fL (80-100); Monocytes Absolute Auto 900 /uL (0-900); Monocytes Percent Auto 7.9 % (3-14); Neutrophils Absolute Auto 9300 /uL (1500-7000); Neutrophils Percent Auto 79.6 % (50-75); Platelet Count 172 X10^3/uL (150-400); Red Blood Cell Count 4.23 X10^6/uL (4.0-5.2); Red Cell Distribution Width 16.1 % (11.6-14.8); White Blood Cell Count 11.6 X10^3/uL (4.5-11.0)
[2021-01-02] MEDS: LACTATED RINGERS 1,000 ML 100 ML IV ×3 (06:58→16:08)
[2021-01-02] MEDS: PENICILLIN G POTASSIUM 5,000,000 UNIT in DEXTROSE 5% IN WATER 250 ML IV (07:59)
--- NOTE | 2021-01-02 08:32 | PM.OBHP.1 ---
OB HPI Date/Time Date of admission: 01/02/21 Date Patient Seen: 01/02/21 Time Patient Seen: 07:50 History of Present Condition Chief complaint: Observation for labor : 1 Para: 0 Estimated Date of Delivery: 12/30/20 Estimated Gestational Age (weeks): 40 Narrative: Mana Escobar is a 25 year old @40+3 admitted for induction of labor for postdates in the setting of EFW of 8#10. She was admitted for induction at 40+0, underwent cervical ripening overnight, then was discharged home due to inadequate labor floor staffing in the AM. She has continued to contract, and now has a favorable cervix. She reports good movement, denies LOF or VB, and denies any other symptoms. Her was conceived with letrozole and IUI, and her has been obstetrically complicated only by obesity. 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 She reports a family history of vaginal delvieries of 8-9#, though no other contributory medical, surgical, family, or social history. Indications Indication for induction OB: post dates History of Present care: good care, initiated at week # (9), number of visits (13) and pounds weight gain (25) Dating criteria: LMP confirmed by 1st trimester US Ultrasounds: abnormal US findings (low lying placenta, resolved at 30 weeks. ) Obstetrical complications: none Medical complications: none Preadmission Labs Blood type: A (+) positive -: Antibody screen: negative, GBS status: positive, HBsAG: negative, HIV: negative and RPR/VDLR: negative -: Rubella: immune and Varicella: immune Sequential screen: declined aneupoloidy screening Urine: no growth 1 hr GTT: 100 Evaluation Evaluation Baseline heart rate: 150 Variability: Average (6-10) monitor accelerations: Present Monitor Decelerations: Absent Category of Tracing: Reactive Status: Category l Cervical dilation (cm): 2 Cervical effacement (%): 80 station: -2 Laboratory results: Laboratory Tests 01/02/21 01/02/21 06:40 06:40 WBC 11.6 H RBC 4.23 Hgb 12.1 Hct 36.5 MCV 86.3 MCH 28.7 MCHC 33.3 RDW 16.1 H Plt Count 172 Neut % (Auto) 79.6 H Lymph % (Auto) 11.7 L [place] % (Auto) 7.9 Eos % (Auto) 0.2 L Baso % (Auto) 0.6 Neut # (Auto) 9300 H Lymph # (Auto) 1400 [place] # (Auto) 900 Eos # (Auto) 0 Baso # (Auto) 100 Blood Type A Positive Antibody Screen Negative [facility] Medical History Abnormal Pap smear of cervix (~06/2019) ADHD (~2002) Anxiety (~2017) Asthma Bronchitis (~2008) Depression (~2017) 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 Grandfather Alcoholic Family estrangement Grandmother Family estrangement Grandfather Family estrangement Brother Depression Anxiety Hearing loss of both ears Social History marital status: number of children: 0 household members: spouse lives independently: No caregiver/support person: No housing: house pets and animals: Yes (1 dog, 1 cat. 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 Formerly vaping & edibles 2-3x/week to help insomnia or just weekend.) during the past year weight has: increased > 10 lbs well-balanced diet: daily or most days caffeine: No Type(s) of exercise: walking (Started in December 2019, 1-2 miles daily. ) and yoga frequency: 3-4 times per week duration: 30-45 minutes/day Meds Home Medications and Allergies Home Medications Medication Instructions Recorded Confirmed Type albuterol sulfate 90 mcg/actuation 2 puff INHALATION Q4-6H PRN 05/24/20 12/30/20 History aerosol inhaler cholecalciferol (vitamin D3) 125 125 mcg PO DAILY 05/24/20 12/30/20 History mcg (5,000 unit) capsule fish, borage, flaxseed oils-omega cap PO 05/24/20 05/24/20 History 3,6,9 comb no.1 1,200 mg capsule prenat.vits,mavis,lsi-xosp-gvvqz 1 tab PO DAILY 05/24/20 12/30/20 History valacyclovir 500 mg tablet 500 mg PO DAILY #30 tab 12/03/20 12/30/20 Rx Allergies Allergy/AdvReac Type Severity Reaction Status Date / Time [place] And Derivatives Allergy Intermediate Numb lips, Verified 05/24/20 15:49 canker sores. Hives if used topically. mold Allergy Intermediate Triggers Verified 05/24/20 17:17 asthma. tree and shrub pollen Allergy Intermediate Triggers Verified 05/24/20 17:16 asthma. Review of Systems Constitutional Constitutional: Reports system reviewed and no additional complaints, except as documented Cardiovascular Cardiovascular: Reports system reviewed and no additional complaints, except as documented Respiratory Respiratory: Reports system reviewed and no additional complaints, except as documented Gastrointestinal Gastrointestinal: Reports system reviewed and no additional complaints, except as documented Genitourinary Genitourinary: Reports as per HPI Neurologic Neurologic: Reports system reviewed and no additional complaints, except as documented Exam Vital Signs (past 8 hours): 121/70, HR 102, T 36.7C Const General: cooperative, healthy appearing and comfortable GI Palpation: soft and No tender External Female Exam: normal external appearance Objective Labs Result Diagrams: 01/02/21 06:40 Labs: Laboratory Results - last 24 hr 01/02/21 01/02/21 06:40 06:40 WBC 11.6 H RBC 4.23 Hgb 12.1 Hct 36.5 MCV 86.3 MCH 28.7 MCHC 33.3 RDW 16.1 H Plt Count 172 Neut % (Auto) 79.6 H Lymph % (Auto) 11.7 L [place] % (Auto) 7.9 Eos % (Auto) 0.2 L Baso % (Auto) 0.6 Neut # (Auto) 9300 H Lymph # (Auto) 1400 [place] # (Auto) 900 Eos # (Auto) 0 Baso # (Auto) 100 Blood Type A Positive Antibody Screen Negative Assessment and Plan Assessment and Plan Assessment and Plan narrative: This patient is admitted for induction of labor for postdates. Her has been uncomplicated. She has a favorable cervix, and will be admitted for pitocin per the usual protocol, and penicillin for GBS ppx. - cEFM, toco - epdural on request
--- NOTE | 2021-01-02 11:18 | PM.OBPNLAB ---
Date/Time Date Patient Seen: 01/02/21 Time Patient Seen: 11:18 Pain Control Pain control: epidural Pelvic Exam Dilation (cm): 8 Effacement (%): 100 station: -2 Amniotic membrane status: Ruptured (clear, SROM) Comments: asynclitic presentation Contractions Pitocin rate (mU/min): 9 Contraction frequency (min): 2 Contraction pattern: Irregular (coupling) Status status: Category ll Heart Rate Baseline: 150 Monitor Accelerations: Absent Monitor Decelerations: Late Monitor Variability: Moderate Assessment and Plan Assessment: induction ongoing Plan: continuous present management Comments: Patient SROMed for clear fluid when being positioned for exam, head still high and asynclitic. No palpable cord,but late decelerations prior to exam became more pronounced. Will reposition, bolus in progress, decreased pitocin if necessary. COntinue expectant management, anticipate but discussed with patient and spouse potential need for CS given EFW 8#10, asynclitic, high, cat 2 EFM.
[2021-01-02] MEDS: PENICILLIN G POTASSIUM 3,000,000 UNIT/50 ML FROZ.PIGGY 100 UNIT IV (12:00)
--- NOTE | 2021-01-02 13:28 | PM.OBPNLAB ---
Date/Time Date Patient Seen: 01/02/21 Time Patient Seen: 13:28 Pain Control Pain control: epidural Pelvic Exam Dilation (cm): 8 Effacement (%): 100 station: -2 Amniotic membrane status: Ruptured (clear, SROM) Contractions Pitocin rate (mU/min): 0 Contraction frequency (min): 2 Contraction pattern: Irregular (coupling) Status status: Category ll Heart Rate Baseline: 155 Monitor Accelerations: Absent Monitor Decelerations: Late Monitor Variability: Minimal Comments: + scalp stim, recurrent late decelerations Assessment and Plan Plan: Comments: This patient presented for induction for labor for postdates. She began having late decelerations, and was found to be 8/100/-2 on exam, with SROM for clear fluid during positioning for that exam. She continued to have increasingly frequent late decelerations despite all conservative measures and cessation of the pitocin, and we reviewed that EFW is 8#10 with an AC percentil of 96-97%, making her remote from delivery. She was councilled for primary section for intolerance of labor. We discussed risk of infection with preop antibiotics to mitigate this risk, risk of hemorrhage, risk of damage to bowel and bladder, and risk of uterine rupture and abnormal placentation in future pregnancies. We discussed the risk of ongoing expectant management including distress. Informed consent was obtained, all questions were answered, and consents were signed.
--- NOTE | 2021-01-02 13:31 | PM.PREOP ---
Pre-operative Note COVID-19 COVID-19 status: Negative Result date/Date tested (Pos, Neg/Pending): 12/30/20 Interval Note History & Physical reviewed/Exam performed by Physician: Yes Changes to H&P: No
[2021-01-02] MEDS: AZITHROMYCIN 500 MG in DEXTROSE 5% IN WATER 250 ML IV (13:44)
[2021-01-02] MEDS: CEFAZOLIN VIAL 3 GM in SODIUM CHLORIDE 0.9% 100 ML 200 ML IV (14:00)
--- NOTE | 2021-01-02 14:03 | SUR.OPER ---
Supine on Padded OR bed, head on pillow, safety belt at thigh, arms secured on padded arm boards at <90 degrees abduction. Bump under right buttock. Legs uncrossed with pillow under knees, gel pad to heels, tape over blanket to lower legs.
--- NOTE | 2021-01-02 14:46 | SUR.OPER ---
Live female at 1409, APGARS 99
[2021-01-02 15:11] VITALS: BP 97/47; PULSE 99; RESP 18; TEMP 36.6; O2SAT 99
--- NOTE | 2021-01-02 15:13 | P.OP_ITS ---
Operative Date/Time/Diagnoses Date of procedure: 01/02/21 Time of procedure: 15:13 Pre-op diagnosis: intolerance of labor Post-op diagnosis: same Procedure & Clinicians Procedure: primary section Same procedure as scheduled: Yes Indications: intolerance of labor Surgeon: Faye Ji Java Xml Developer: Parveen Funk Reason for Java Xml Developer: Assistance with retraction, delivery of infant, hemostasis Anesthesia Type: Epidural Operative Notes Findings: Female in cephalic, ROT presentation, apgars 9+9, weight 8#15oz Intraoperative meds administered: Ketorolac and Pitocin Estimated Blood Loss (mL): 500 Procedure in detail: EBL: 500ccs Findings: Female in cephalic presentation, Apgars 9+9, weight 8#15, normal uterus, tubes, ovaries. Procedures: The patient was taken to the operating room where epidural anesthesia was tested and found to be adequate. She was prepped and draped in the normal sterile fashion in the dorsal supine position with a leftward tilt. A Pfannenstiel skin incision was made with a scalpel and carried through to the underlying layer of fascia. The fascia was incised in the midline and the incision extended laterally with Elaine scissors. The superior aspect of this incision was grasped with Frederick clamps, elevated, and the underlying rectus muscles dissected off bluntly and with the curved Elaine scissors. Attention was then turned to the inferior aspect of this incision which, in a similar fashion, was grasped, tented up with the Frederick clamps, and the rectus muscles dissected off bluntly and with the curved Elaine scissors. The rectus muscles were then in the midline, and the peritoneum identified, tented up, and entered sharply with Metzenbaum scissors. The peritoneal incision was extended superiorly and inferiorly with good visualization of the bladder. The bladder blade was inserted and the vesicouterine peritoneum identified, grasped with pickups, and entered sharply with the Metzenbaum scissors. This incision was extended laterally, and the bladder flap created digitally. The bladder blade was then reinserted and the lower uterine segment incised in transverse fashion with the scalpel. The uterine incision was bluntly extended laterally. The bladder blade was removed, and the 's head delivered atraumatically with assistance of a vacuum. After 30 seconds of delayed cord clamping, the cord was clamped and cut. The nose and mouth were suctioned as needed with a bulb syringe, and the was handed off to awaiting pediatricians. The placenta was then removed spontaneously, and the uterus was exteriorized and cleared of all clots and debris. The uterine incision was repaired with 1-0 chromic in a running, locked fashion a 2nd layer of the same suture was used to obtain excellent hemostasis. The uterus was returned to the abdomen, and the gutters were cleared of all clots and debris. The bladder flap was closed with 2-0 Vicryl in a running fashion, the peritoneum was closed with 3-0 Vicryl, and the fascia reapproximated with 0 Vicryl in a running fashion. The subcutaneous layer was placed with 3 0 Vicryl in an interrupted fashion and the skin was closed with 4-0 biosyn in a running fashion. The patient tolerated the procedure well. Sponge lap and needle counts were correct x2. A vaginal prep was performed with betadine as part of the prep. 3g of Ancef and 500mg of Azithromycin were given at commencement of the case. The patient was taken to the recovery room in stable condition. Complications: none Baby Chantelle: Gender: Female Presentation: vertex Position: Right Occiput Transverse Details: back up Placental Delivery Description: Manual Removal Cord Vessel Description: 3 Vessels score (1 min): 9 score (5 min): 9 weight: 8 lb 15 oz Post-operative Condition: stable Disposition: PACU Aftercare: routine postop
[2021-01-02 15:16] VITALS: BP 103/46; PULSE 103; RESP 12; O2SAT 97
[2021-01-02 15:21] VITALS: BP 109/53; PULSE 98; RESP 16; O2SAT 96
[2021-01-02 15:32] VITALS: BP 103/58; PULSE 102; RESP 17; TEMP 36.6; O2SAT 96
--- NOTE | 2021-01-02 15:44 | RT ---
i attended the C section for the in OR; the did not need any intervention by me.
[2021-01-02] MEDS: KETOROLAC 30 MG/ML VIAL IV ×2 (16:08→21:59)
[2021-01-02 17:40] VITALS: BP 108/59
[2021-01-03] MEDS: ACETAMINOPHEN 325 MG TABLET 650 MG PO ×3 (03:21→21:31)
[2021-01-03] MEDS: KETOROLAC 30 MG/ML VIAL IV ×2 (03:54→10:05)
[2021-01-03 08:22] LABS: Add Manual Diff / Slide Review NO; Basophils Absolute Auto 100 /uL (0-100); Basophils Percent Auto 0.8 % (0-2); Eosinophils Absolute Auto 0 /uL (0-450); Eosinophils Percent Auto 0.2 % (2-4); Hematocrit 30.6 % (36-46); Hemoglobin 10.1 g/dL (12.0-16.0); Lymphocytes Absolute Auto 1200 /uL (1100-4500); Lymphocytes Percent Auto 10.3 % (25-40); Mean Corpuscular HGB Conc 33.1 % (30-36); Mean Corpuscular Hemoglobin 28.7 PG (26-34); Mean Corpuscular Volume 86.6 fL (80-100); Monocytes Absolute Auto 1000 /uL (0-900); Monocytes Percent Auto 8.9 % (3-14); Neutrophils Absolute Auto 9200 /uL (1500-7000); Neutrophils Percent Auto 79.8 % (50-75); Platelet Count 129 X10^3/uL (150-400); Red Blood Cell Count 3.54 X10^6/uL (4.0-5.2); Red Cell Distribution Width 16.8 % (11.6-14.8); White Blood Cell Count 11.5 X10^3/uL (4.5-11.0)
[2021-01-03] MEDS: DOCUSATE 250 MG CAPSULE PO (09:17)
[2021-01-03] MEDS: OXYCODONE IR 5 MG TABLET PO ×2 (09:17→13:28)
--- NOTE | 2021-01-03 10:14 | PM.OBPN.1 ---
Subjective - OB Subjective Patient comments: no complaints, pain well controlled, incisional pain, tolerating diet and flatus present baby status: doing well [place] feeding status: exclusively breast feeding Narrative: This patient is postop day 1 status post uncomplicated primary section for category 2 heart rate tracing in the setting of suspected LGA fetus and arrest of dilation at 8cm. The patient reports good pain control today on p.o. medications, this ambulated once without complication, moderate lochia. Is mid voiding trial. Has passed flatus. Tolerating p.o., no PIH complaints. Baby is doing well. Date Patient Seen: 01/03/21 Time Patient Seen: 09:30 Exam Vital Signs (past 8 hours): 104/63, HR 95 Oxygen Delivery Method Room Air Const General: cooperative, healthy appearing and comfortable Resp Effort & Inspection: normal respiratory effort Auscultation: clear to auscultation bilaterally Cardio Rate: regular rate Rhythm: regular rhythm GI Inspection: incision (Clean, dry, intact, covered by Aquacel) and large pannus Palpation: soft and No tender Extrem General: normal to inspection Objective Labs Result Diagrams: 01/03/21 08:10 Labs: Laboratory Results - last 24 hr 01/03/21 08:10 WBC 11.5 H RBC 3.54 L Hgb 10.1 L Hct 30.6 L MCV 86.6 MCH 28.7 MCHC 33.1 RDW 16.8 H Plt Count 129 L Neut % (Auto) 79.8 H Lymph % (Auto) 10.3 L [place] % (Auto) 8.9 Eos % (Auto) 0.2 L Baso % (Auto) 0.8 Neut # (Auto) 9200 H Lymph # (Auto) 1200 [place] # (Auto) 1000 H Eos # (Auto) 0 Baso # (Auto) 100 Assessment & Plan Assessment and Plan (1) delivery delivered: Status: Acute Plan day: 1 plan OB: routine postop care Comments: Patient is recovering well, meeting postoperative goals appropriately. Given BMI, activity level, and section, ordered for prophylactic Lovenox. For repeat labs in a.m., no PIH symptoms. Encouraged to ambulate. Time Spent With Patient Time: Total time spent is greater than 50% in coordination of care (as documented) at patient's floor/unit and/or counseling patient: Time with patient: 15-24 minutes
[2021-01-03] MEDS: ENOXAPARIN 40 MG/0.4 ML SYRINGE SUBCUT (11:34)
[2021-01-03 13:28] VITALS: TEMP 36.5
[2021-01-03 15:29] VITALS: BP 112/71; PULSE 109; RESP 17; TEMP 37.1
[2021-01-03] MEDS: IBUPROFEN 600 MG TABLET PO ×2 (15:31→21:30)
[2021-01-03] MEDS: OXYCODONE IR 10 MG TABLET PO ×2 (17:25→21:30)
[2021-01-04] MEDS: OXYCODONE IR 10 MG TABLET PO ×3 (01:37→11:12)
[2021-01-04] MEDS: IBUPROFEN 600 MG TABLET PO ×2 (03:32→09:57)
[2021-01-04] MEDS: ACETAMINOPHEN 325 MG TABLET 650 MG PO ×2 (03:32→09:57)
[2021-01-04 05:57] LABS: Add Manual Diff / Slide Review NO; Basophils Absolute Auto 100 /uL (0-100); Basophils Percent Auto 0.5 % (0-2); Eosinophils Absolute Auto 200 /uL (0-450); Eosinophils Percent Auto 1.5 % (2-4); Hemoglobin 9.7 g/dL (12.0-16.0); Lymphocytes Absolute Auto 1400 /uL (1100-4500); Lymphocytes Percent Auto 13.4 % (25-40); Mean Corpuscular HGB Conc 33.5 % (30-36); Mean Corpuscular Hemoglobin 29.1 PG (26-34); Mean Corpuscular Volume 86.9 fL (80-100); Monocytes Absolute Auto 900 /uL (0-900); Monocytes Percent Auto 8.3 % (3-14); Neutrophils Absolute Auto 8000 /uL (1500-7000); Neutrophils Percent Auto 76.3 % (50-75); Platelet Count 137 X10^3/uL (150-400); Red Blood Cell Count 3.34 X10^6/uL (4.0-5.2); Red Cell Distribution Width 16.3 % (11.6-14.8); White Blood Cell Count 10.5 X10^3/uL (4.5-11.0)
[2021-01-04 06:13] LABS: Alanine Aminotransferase 17 IU/L (<35); Albumin 2.6 g/dL (3.5-5.0); Alkaline Phosphatase 116 U/L (38-126); Aspartate Aminotransferase 33 IU/L (14-36); BUN Creatinine Ratio 12.5 (6-22); Blood Urea Nitrogen 6 mg/dL (7-17); Calcium 8.5 mg/dL (8.4-10.2); Carbon Dioxide 25 mmol/L (22-32); Chloride 107 mmol/L (98-107); Estimated Glomerular Filt Rate > 60.0 mL/min (>60); Globulin 2.7 g/dL (1.7-4.1); Glucose 95 mg/dL (70-100); HEMOLYSIS < 15 (0-50); Potassium 3.5 mmol/L (3.4-5.1); Sodium 134 mmol/L (137-145); Total Protein 5.3 g/dL (6.3-8.2)
[2021-01-04 06:14] LABS: Bilirubin Total < 0.1 mg/dL (0.2-1.3)
--- NOTE | 2021-01-04 07:50 | PM.OBDS.1 ---
Discharge Providers Provider Date of admission: 01/02/21 00:56 Discharge Date: 01/04/21 Consults: 01/02/21 15:29 Consult to Iv Therapy Nurse Routine Comment: Discharge provider: Mo Elizabeth MD Summary Hospital Course Date Patient Seen: 01/04/21 Time Patient Seen: 07:50 Diagnoses: Delivery of a viable via Routine post care Discharge Diagnosis (1) delivery delivered: Status: Acute Time Spent with Patient Time attestation: Total time spent providing and/or coordinating discharge services: Time spent: Less than 30 minutes Objective Labs Result Diagrams: 01/04/21 05:45 01/04/21 05:45 Labs: Laboratory Results - last 24 hr 01/03/21 01/04/21 01/04/21 08:10 05:45 05:45 WBC 11.5 H 10.5 RBC 3.54 L 3.34 L Hgb 10.1 L 9.7 L Hct 30.6 L 29.0 L MCV 86.6 86.9 MCH 28.7 29.1 MCHC 33.1 33.5 RDW 16.8 H 16.3 H Plt Count 129 L 137 L Neut % (Auto) 79.8 H 76.3 H Lymph % (Auto) 10.3 L 13.4 L [place] % (Auto) 8.9 8.3 Eos % (Auto) 0.2 L 1.5 L Baso % (Auto) 0.8 0.5 Neut # (Auto) 9200 H 8000 H Lymph # (Auto) 1200 1400 [place] # (Auto) 1000 H 900 Eos # (Auto) 0 200 Baso # (Auto) 100 100 Sodium 134 L Potassium 3.5 Chloride 107 Carbon Dioxide 25 BUN 6 L Creatinine 0.48 L Estimated GFR > 60.0 BUN/Creatinine Ratio 12.5 Glucose 95 Calcium 8.5 Total Bilirubin < 0.1 L AST 33 ALT 17 Alkaline Phosphatase 116 Total Protein 5.3 L Albumin 2.6 L Globulin 2.7 Albumin/Globulin Ratio 1.0 Exam Vital Signs (past 8 hours): Oxygen Delivery Method Room Air Discharge Plan Discharge orders & Medications Discharge Orders: Discharge (Order); Ordered 01/04/21 Ordered By: Mo Elizabeth Prescriptions: New oxycodone 5 mg tablet 5 mg PO Q6H PRN (Reason: pain) Qty: 20 RF: 0 Continued prenat.vits,mavis,[id number]-[id number] Tablet 1 tab PO DAILY RF: 0 cholecalciferol (vitamin D3) 125 mcg (5,000 unit) capsule 125 mcg PO DAILY RF: 0 fish,bora,flax oils-om3,6,9no1 1,200 mg capsule PO RF: 0 albuterol sulfate [ProAir HFA] 90 mcg/actuation HFA aerosol inhaler 2 puff INHALATION Q4-6H PRN (Reason: Respiratory Distress) RF: 0 valacyclovir [Valtrex] 500 mg tablet 500 mg PO DAILY Qty: 30 RF: 1 Follow up/Referrals: Faye Ji MD [Physician] - 1 Week Diet/Activity/Treatments Diet: Regular Activity: Nothing in the vagina for 6 weeks. Avoid lifting more than 10 lbs for 6 weeks. If you have increasing bleeding, fevers, chills, nausea, vomiting, headaches, pain, or any other symptoms, call or come to the emergency room. Skin/Wound/Dressing Care Report to your healthcare provider any signs of infection, such as:: chills, fever, night sweats, increased pain, unusual drainage and unusual redness Visit Report/Discharge Packet Instructions: DI for Visit Report Forms: Patient Portal/API, Stroke Signs & Symptoms
[2021-01-04] MEDS: DOCUSATE 250 MG CAPSULE PO (09:58)
[2021-01-04] MEDS: ENOXAPARIN 40 MG/0.4 ML SYRINGE SUBCUT (10:02)
== END 2021-01-04 12:03 | disposition home or self-care (01) | DRG 788 ==
PROVIDERS: Obstetrics & Gynecology; Admitting Provider Specialist; Referring Provider Specialist; Visit Provider Specialist
PROC: 10D00Z1 Extraction of Products of Conception, Low, Open Approach (ICD-10-PCS; CPT 59514; principal; 2021-01-02 13:30)
DX: O48.0 Post-term pregnancy (principal); Z3A.40 40 weeks gestation of pregnancy; Z37.0 Single live birth; O76 Abnormality in fetal heart rate and rhythm complicating labor and delivery; O99.891 Other specified diseases and conditions complicating pregnancy; E66.9 Obesity, unspecified; J45.909 Unspecified asthma, uncomplicated; O99.824 Streptococcus B carrier state complicating childbirth; F41.9 Anxiety disorder, unspecified; F32.9 Major depressive disorder, single episode, unspecified; B00.9 Herpesviral infection, unspecified; Z20.822 Contact with and (suspected) exposure to COVID-19
CPT/HCPCS: 01967; 01968; 36415; 59050; 59200; 59510; 59514; 80053; 85025; 86850; 86900; 86901; G0379; J0690; J1650; J1885; J2274; J2405; J2540; J2590; J3010

== ENCOUNTER → 2021-10-20 09:13 | Outpatient (CLI) | payer OTHER, SELFPAY ==
[2021-10-20 12:22] LABS: COVID19 -Nasal RAPID Negative (Negative)
== END ==
PROVIDERS: PCP Family Medicine; Visit Provider Surgery
DX: Z01.812 Encounter for preprocedural laboratory examination (principal); Z20.822 Contact with and (suspected) exposure to COVID-19
CPT/HCPCS: 87635; C9803

== ENCOUNTER → 2021-10-27 11:07 | Outpatient (CLI) | payer OTHER, SELFPAY ==
[2021-10-27 13:00] LABS: COVID19 -Nasal RAPID Negative (Negative)
== END ==
PROVIDERS: PCP Family Medicine; Visit Provider Surgery
DX: Z01.812 Encounter for preprocedural laboratory examination (principal); Z20.822 Contact with and (suspected) exposure to COVID-19
CPT/HCPCS: 87635; C9803

== ENCOUNTER 2021-10-28 06:40 | Day surgery (SDC) | payer OTHER, SELFPAY ==
[2021-10-15 15:02] VITALS: BMI 34.0
--- NOTE | 2021-10-28 07:36 | SUR.PREOP ---
Patient with positive test x2 on admit. States she missed last period. Pt surgery cancelled by Dr Mensah and Dr Cadena who both spoke with patient.
== END 2021-10-28 06:45 | disposition home or self-care (01) ==
LOC: OR 06:41
PROVIDERS: PCP Family Medicine; Referring Provider Surgery; Visit Provider Surgery
DX: Z53.09 Procedure and treatment not carried out because of other contraindication (principal)
CPT/HCPCS: 81025

== ENCOUNTER → 2021-11-18 11:49 | Outpatient (CLI) | payer OTHER, SELFPAY ==
[2021-11-18 12:26] LABS: Appearance Urine UA CLEAR; Bilirubin Urine UA NEGATIVE (NEGATIVE); Color Urine UA YELLOW; Glucose Urine UA NEGATIVE (Negative); Ketones Urine UA NEGATIVE (NEGATIVE); Leukocyte Esterase Urine UA NEGATIVE (NEGATIVE); Nitrite Urine UA NEGATIVE (Negative); Occult Blood Urine UA NEGATIVE (Negative); Protein Urine UA NEGATIVE (Negative); Urobilinogen Urine UA 0.2 E.U./dL (0.2)
[2021-11-18 12:54] LABS: Add Manual Diff / Slide Review NO; Basophils Absolute Auto 0 /uL (0-100); Basophils Percent Auto 0.5 % (0-2); Eosinophils Absolute Auto 100 /uL (0-450); Eosinophils Percent Auto 1.2 % (2-4); Hematocrit 36.3 % (36-46); Hemoglobin 12.2 g/dL (12.0-16.0); Lymphocytes Absolute Auto 1700 /uL (1100-4500); Lymphocytes Percent Auto 21.2 % (25-40); Mean Corpuscular HGB Conc 33.5 % (30-36); Mean Corpuscular Hemoglobin 28.1 PG (26-34); Mean Corpuscular Volume 83.8 fL (80-100); Monocytes Absolute Auto 700 /uL (0-900); Monocytes Percent Auto 8.3 % (3-14); Neutrophils Absolute Auto 5400 /uL (1500-7000); Neutrophils Percent Auto 68.8 % (50-75); Platelet Count 249 X10^3/uL (150-400); Red Blood Cell Count 4.32 X10^6/uL (4.0-5.2); Red Cell Distribution Width 13.7 % (11.6-14.8); White Blood Cell Count 7.9 X10^3/uL (4.5-11.0)
[2021-11-19 06:34] LABS: RPR Screen Non Reactive (Non Reactive)
[2021-11-19 06:36] LABS: Varicella IgG Antibody 1107 index (Immune >165)
[2021-11-20 16:34] LABS: HIV 1 & 2 Ab/Ag 4th Gen Combo NEGATIVE (NEGATIVE); Hep C Virus Ab w/Reflex Quant NEGATIVE s/c (NEGATIVE); Hepatitis B Surface Antigen NEGATIVE s/c (NEGATIVE); Rubella Antibody IgG 92.3 IU/mL (>15)
== END ==
PROVIDERS: PCP Family Medicine; Referring Provider Obstetrics & Gynecology; Visit Provider Obstetrics & Gynecology
DX: Z34.80 Encounter for supervision of other normal pregnancy, unspecified trimester (principal); Z3A.08 8 weeks gestation of pregnancy
CPT/HCPCS: 36415; 80055; 81003; 86787; 86803; 86850; 86900; 86901; 87086; 87389

== ENCOUNTER → 2022-01-12 10:17 | Outpatient (CLI) | payer OTHER, SELFPAY ==
[2022-01-12 12:18] LABS: COVID19 -Nasal RAPID Negative (Negative)
== END ==
PROVIDERS: PCP Family Medicine; Visit Provider Surgery
DX: Z01.812 Encounter for preprocedural laboratory examination (principal); Z20.822 Contact with and (suspected) exposure to COVID-19
CPT/HCPCS: 87635; C9803

== ENCOUNTER 2022-01-13 13:20 | Day surgery (SDC) | payer OTHER, SELFPAY ==
[2022-01-08 14:34] VITALS: BMI 34.0
[2022-01-13] VITALS (7 sets, daily range): BP systolic 101–120; BP diastolic 65–76; PULSE 74–121; RESP 13–21; TEMP 36.7–36.9; O2SAT 96–98; BMI 34.0
--- NOTE | 2022-01-13 | PATH_ITS ---
[facility] Accession Number: [id number] . 01 Material submitted: . gallbladder - GALLBLADDER AND CONTENTS . 01 Clinical history: . CALCULUS OF GALLBLADDER WITHOUT CHOLECYSTITIS . 01 Diagnosis: Gallbladder and Contents, Cholecystectomy: Chronic cholecystitis with cholesterolosis and cholelithiasis. One benign lymph node. [facility] 01/16/2022 1134 Local . 01 Electronically signed: . Susan Taylor MD, Pathologist NPI- [id number] . 01 Gross description: . Received in formalin and labeled with the patient's name and gallbladder and contents and consists of an intact gallbladder measuring 7.3 x 1.8 x 1.5 cm. The serosa is violaceous and congested while the hepatic surface is rough and unremarkable. The cystic duct is received closed with a clip and is inked blue. A pericystic lymph node candidate is identified measuring 1.5 cm in greatest dimension. Opening the specimen reveals the lumen to be filled with thick, green, semi-solid bile and a single yellow rough calculus obstructing the bile duct measuring 1.5 cm in greatest dimension. The mucosa is green to vogel with focal areas of yellow coloration consistent with cholesterol deposits. The mucosa is grossly attenuated in the areas adjacent to the stone. No polyps or lesions are identified, and the clark average 0.3 cm thick. Fig Bar Machine Operator sections to include the cystic duct margin, intact lymph node candidate and full thickness sections are submitted in cassette A1. ([id number]) /[facility] 01/14/2022 1811 Local . 01 Pathologist provided ICD-10: K80.20, K80.10, K81.1 . 01 CPT . 180553 Specimen Comment: A courtesy copy of this report has been sent to [phone] Performed at: 01 [facility] [address], [place], [place] [id number] MD Dani Greenwood MD Phone: [phone]
--- NOTE | 2022-01-13 14:38 | P.HP_ITS ---
History of Present Illness History of Present Illness Date Patient Seen: 01/13/22 Time Patient Seen: 14:38 Chief complaint: SDC Narrative: Mana is a 26-year-old woman was scheduled for a laparoscopic cholecystectomy October of this year due to gallstones but was found to be on the day of surgery. The surgery was canceled and he has been rescheduled now that she is in her 2nd trimester to reduce the risks to the gestation. Doppler tones were taken today demonstrating a normal heart rate. 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 Grandfather Alcoholic Family estrangement Grandmother Family estrangement Grandfather Family estrangement Brother Depression Anxiety Hearing loss of both ears Social History: household members spouse,children lives independently Yes caregiver/support person No Tobacco & Substance use: Tobacco type e-cigarettes Smoking Status Never smoker alcohol intake former alcohol intake frequency holiday/special occasion Substance Use Type does not use,former substance user,marijuana Meds Home Medications and Allergies Home Medications Medication Instructions Recorded Confirmed Type ondansetron 8 mg disintegrating 8 mg PO Q8H PRN #20 tab 11/05/21 01/13/22 Rx tablet albuterol sulfate 90 mcg/actuation 2 puff INHALATION Q4-6H PRN #6.7 g 11/12/21 01/13/22 Rx aerosol inhaler (ProAir HFA) cholecalciferol (vitamin D3) 125 125 mcg PO DAILY 11/12/21 01/12/22 History mcg (5,000 unit) tablet valacyclovir 500 mg tablet 500 mg PO BID 3 Days #6 tab 12/15/21 01/13/22 Rx Allergies Allergy/AdvReac Type Severity Reaction Status Date / Time [place] And Derivatives Allergy Intermediate Numb lips, Verified 01/13/22 14:37 canker sores. Hives if used topically. mold Allergy Intermediate Triggers Verified 01/13/22 14:37 asthma. tree and shrub pollen Allergy Intermediate Triggers Verified 01/13/22 14:37 asthma. aquacell AdvReac Intermediate Rash Uncoded 01/13/22 14:37 Exam Const General: comfortable Resp Effort & Inspection: normal respiratory effort GI Other: Abdomen is soft and distended consistent with a 15 week gestation Assessment & Plan Assessment and plan (1) Gallstones: Status: Acute Plan We reviewed the risks and benefits of laparoscopic cholecystectomy for symptomatic cholelithiasis. We also discussed the additional risks to the gestation from surgery and general anesthesia. She would like to proceed. Time Spent With Patient Critical Care time: I spent a total of [] minutes of critical care time on this patient's care today; this time is exclusive of procedural time.
[2022-01-13] MEDS: LACTATED RINGERS 1,000 ML 84 ML IV ×2 (14:40→16:14)
--- NOTE | 2022-01-13 14:46 | PC.NURSE ---
1428 - RN in PACU at bedside to doppler heart tones. heart rate noted to be 150bpm.
--- NOTE | 2022-01-13 14:47 | SUR.PREOP ---
1415 [facility]OM[facility] [employer]ICE HERE TO CHECK FHT'S. 150, STRONG AND REGULAR, MIDLINE BELOW UMBILICUS
[2022-01-13] MEDS: CEFAZOLIN 2 GM/20 ML SYRINGE IV (15:00)
[2022-01-13] MEDS: BUPIVACAINE 0.5% (PF) VIAL 30 ML INJ (15:20)
[2022-01-13] MEDS: LIDOCAINE 1% W/EPI 20 ML INJ (15:20)
--- NOTE | 2022-01-13 15:27 | SUR.OPER ---
Supine on padded OR bed, head on pillow, arms secured on padded arm boards at <90 degrees abduction, legs uncrossed, safety belt at thigh, tape over blanket over lower legs. Gel pads under bilateral heels. Towel under left wrist. Bed tilted for duration of procedure for left uterine displacement.
--- NOTE | 2022-01-13 16:50 | PM.OP.1 ---
Operative Date/Time/Diagnoses Date of procedure: 01/13/22 Time of procedure: 16:50 Pre-op diagnosis: Gallstones during Post-op diagnosis: same Procedure & Clinicians Procedure: Laparoscopic cholecystectomy Same procedure as scheduled: Yes Surgeon: Xiang Mensah Anesthesia Type: General Operative Notes Procedure in detail: The patient was given preoperative antibiotic. The patient was brought to the operating room, placed on the table in the supine position with a slight bump under the left hip to displace the uterus. General endotracheal anesthesia was induced. The abdomen was prepped and draped. A time-out was performed. We made a 1 cm infraumbilical incision. We dissected down to the base of the umbilical stalk using cautery. We grasped the umbilical stalk with a Frederick clamp to elevate the abdominal wall. We scored the fascia in the midline with cautery 1 cm. We pierced the peritoneum with a Peon clamp. The Lis port was placed and the abdomen was insufflated to 10 mmHg. A 5 mm 30 degree laparoscopic was inserted. There was no evidence of any injury from the entry. The uterus was gravid appearing with no signs of trauma. A photograph was taken. Next, we placed 5 mm ports in the subxiphoid position and right upper quadrant at the midclavicular line and anterior axillary line. Patient was then positioned in reverse Trendelenburg and the table was tilted further to the left. The gallbladder was grasped at the dome and retracted cephalad. We then dissected the cystic structures with a combination of hook cautery and blunt dissection. We obtained a critical view. We placed hemoclips on the cystic duct and artery and divided the cystic duct and artery sharply between the clips. The gallbladder was then dissected off the liver. There was a posterior branch about long term up that was clipped once and divided. We then placed the gallbladder in a specimen bag. We then irrigated the right upper quadrant and all the aspirate returned clear. We then removed the 5 mm ports under direct vision we removed the Lis port. We then injected some local into the fascia and closed the fascia with 4 interrupted 0 Vicryl sutures. The skin incisions were closed with 4 Monocryl and Steri-Strips were applied. Band-Aids were applied over the Steri-Strips. EBL: 30 mL Specimen: Gallbladder Post-operative Condition: stable Disposition: PACU Plan for aftercare: Will check heart tones in the PACU
[2022-01-13] MEDS: ONDANSETRON 4 MG/2 ML INJ (17:00)
--- NOTE | 2022-01-13 17:08 | SUR.PHASEI ---
L&D nurse at bedside to assess heart tones.
--- NOTE | 2022-01-13 17:18 | SUR.PHASEI ---
heart tones 143.
[2022-01-13] MEDS: METOCLOPRAMIDE 10 MG/2 ML INJ IV (17:36)
== END 2022-01-13 18:03 | disposition home or self-care (01) ==
PROVIDERS: PCP Family Medicine; Referring Provider Surgery; Visit Provider Surgery
PROC: 0FT44ZZ Resection of Gallbladder, Percutaneous Endoscopic Approach (ICD-10-PCS; CPT 47562; principal; 2022-01-13 14:45)
DX: K80.10 Calculus of gallbladder with chronic cholecystitis without obstruction (principal); Z33.1 Pregnant state, incidental; J45.909 Unspecified asthma, uncomplicated
CPT/HCPCS: 47562; J0690; J1100; J1885; J2250; J2405; J2704; J2765; J3010

== ENCOUNTER → 2022-02-06 17:08 | Outpatient (CLI) | payer OTHER, SELFPAY ==
[2022-02-10 20:42] LABS: AFP Value 56.1 ng/mL (.); Gest Age on Col Date 19.6 weeks (.); Insulin Dep Diabetes No (.); OSBR Risk 1IN 6916 (.); Results Report (.); Test Results *Screen Negative* (.)
== END ==
PROVIDERS: PCP Family Medicine; Referring Provider Obstetrics & Gynecology; Visit Provider Obstetrics & Gynecology
DX: Z34.82 Encounter for supervision of other normal pregnancy, second trimester (principal); Z3A.19 19 weeks gestation of pregnancy
CPT/HCPCS: 36415; 82105

== ENCOUNTER → 2022-02-13 16:19 | Outpatient (CLI) | payer OTHER, SELFPAY ==
[2022-02-13 17:14] LABS: Add Manual Diff / Slide Review NO; Basophils Absolute Auto 0 /uL (0-100); Basophils Percent Auto 0.3 % (0-2); Eosinophils Absolute Auto 100 /uL (0-450); Eosinophils Percent Auto 0.8 % (2-4); Hematocrit 33.3 % (36-46); Hemoglobin 11.7 g/dL (12.0-16.0); Lymphocytes Absolute Auto 1800 /uL (1100-4500); Mean Corpuscular HGB Conc 35.1 % (30-36); Mean Corpuscular Hemoglobin 29.4 PG (26-34); Mean Corpuscular Volume 83.7 fL (80-100); Monocytes Absolute Auto 800 /uL (0-900); Monocytes Percent Auto 7.8 % (3-14); Neutrophils Absolute Auto 7100 /uL (1500-7000); Neutrophils Percent Auto 73.1 % (50-75); Platelet Count 162 X10^3/uL (150-400); Red Blood Cell Count 3.98 X10^6/uL (4.0-5.2); Red Cell Distribution Width 14.1 % (11.6-14.8); White Blood Cell Count 9.8 X10^3/uL (4.5-11.0)
[2022-02-13 17:31] LABS: Alanine Aminotransferase 16 IU/L (<35); Aspartate Aminotransferase 21 IU/L (14-36); BUN Creatinine Ratio 17.4 (6-22); Blood Urea Nitrogen 8 mg/dL (7-17); Estimated Glomerular Filt Rate > 60 mL/min (>60)
[2022-02-13 18:15] LABS: Creatinine Urine Random 174.5 mg/dL
[2022-02-13 18:19] LABS: Protein (Total) Urine Random < 5 mg/dL (0-12); Protein Creatinine Ratio Urine 0.02 GRAM/24H
== END ==
PROVIDERS: PCP Family Medicine; Referring Provider Obstetrics & Gynecology; Visit Provider Obstetrics & Gynecology
DX: O14.90 Unspecified pre-eclampsia, unspecified trimester (principal)
CPT/HCPCS: 36415; 82565; 82570; 84156; 84450; 84460; 84520; 84550; 85025

== ENCOUNTER → 2022-02-20 09:41 | Outpatient (CLI) | payer OTHER, SELFPAY ==
--- NOTE | 2022-02-20 09:42 | DI.US.S_ITS ---
PROCEDURE: US OB >= 14 WEEKS FETUS INDICATIONS: 20 WEEK ANATOMY SCAN OUTSIDE/PRIOR DATING DATA: Last menstrual period (LMP): Unknown. LMP-based estimated date of delivery (NEHEMIAS): Not applicable. First dating scan (date and location): 11/18/2021. Estimated date of delivery (NEHEMIAS) from first dating scan: 06/30/2022 TECHNIQUE: Real-time scanning was performed of the fetus, with image documentation and biometric measurements. Endovaginal scanning: No COMPARISON: [facility], , OB >= 14 WEEKS FETUS, 12/12/2021, 13:25. FINDINGS: General: A single living intrauterine gestation is present. Presentation: Vertex. Placenta: Placental position is anterior , without previa. Amniotic fluid index: 17.1 cm, normal range is 5-24 cm. Single deepest vertical pocket is 6.1 cm. heart rate: 153 beats per minute. Maternal cervical canal: 3.8 cm long. Normal lower limit is 2.5 cm. biometrics: Biparietal diameter: 50 mm; 21 weeks 0 days Head circumference: 184 mm; 20 weeks 5 days Abdominal circumference: 155 mm; 20 weeks 5 days Femur length: 37 mm; 21 weeks 5 days Estimated gestational age based on initial OB ultrasound: 21 weeks 3 days Composite gestational age from present scan: 21 weeks 3 days Estimated weight and percentile: 398 g, which is at the 27th percentile for gestational age Anatomic survey: Neuro: Ventricles are non-dilated at less than 10 mm. Cisterna magna is normal at 3-11 mm. Cerebellum is normal in size and morphology. Nuchal skin fold: Normal at less than 6 mm between 14-21 weeks gestational age. Face: Nose and lips, facial profile are normal. Spine: Not well seen. Heart: 4-chambered heart is present, with normal ventricular outflow tracts. Diaphragm: Diaphragm is intact. Stomach: Left-sided stomach is present. Kidneys: No hydronephrosis. Normal is less than 5 mm in 2nd trimester, less than 7 mm in 3rd trimester. Cord: 3-vessel cord has orthotopic insertion. Bladder: Normal in size. Extremities: All 4 extremities identified. IMPRESSION: 1. Single living intrauterine gestation. 2. Suboptimal evaluation of the spine. Otherwise negative survey of anatomy. We strive to produce accurate, complete, and clear reports of imaging services. To assist us in improving patient care, this report was composed using standard report templates and voice recognition software. Therefore, it may contain abnormal punctuation, insertions and/or omissions. Occasional wrong-word or sound-alike substitutions may occur. Though we review the report and make efforts to correct it, we do recommend that the report be read carefully in proper context to recognize any text inaccuracies. Dictated by: Steffany Alfredo M.D. on 02/20/2022 at 13:17 Transcribed by: ERNESTINE on 02/20/2022 at 13:20 Approved by: Steffany Alferdo M.D. on 02/20/2022 at 16:14
== END ==
PROVIDERS: PCP Family Medicine; Referring Provider Obstetrics & Gynecology; Visit Provider Obstetrics & Gynecology
DX: Z34.82 Encounter for supervision of other normal pregnancy, second trimester (principal); Z3A.20 20 weeks gestation of pregnancy
CPT/HCPCS: 76811

== ENCOUNTER → 2022-03-10 09:37 | Outpatient (CLI) | payer OTHER, SELFPAY ==
--- NOTE | 2022-03-10 09:39 | DI.US.S_ITS ---
PROCEDURE: US OB FOLLOW UP INDICATIONS: F/U Spine not seen on Anatomy scan OUTSIDE/PRIOR DATING DATA: Last menstrual period (LMP): Unknown First dating scan (date and location): 11/18/2021 Estimated date of delivery (NEHEMIAS) from first dating scan: 07/30/2022 TECHNIQUE: Real-time scanning was performed of the fetus, with image documentation. Endovaginal scanning: Not performed COMPARISON: 02/20/2022 FINDINGS: A single living intrauterine gestation is present. Presentation: Breech Placenta: Anterior without previa Amniotic fluid index: 15.6 heart rate: 153 beats per minute Maternal cervical canal: 3.9 cm Clinically estimated gestational age: 24 weeks based on for staging scan. Spine is well seen on today's study and appears normal. IMPRESSION: Intrauterine gestation at 24 weeks of gestational age. Growth was not performed on this study. Spine is well seen on today's study. In conjunction with prior ultrasound, this completes the routine anatomic survey. Dictated by: Elvis De Souza M.D. on 03/10/2022 at 10:50 Approved by: Elvis De Souza M.D. on 03/10/2022 at 10:53
== END ==
PROVIDERS: PCP Family Medicine; Referring Provider Obstetrics & Gynecology; Visit Provider Obstetrics & Gynecology
DX: Z36.2 Encounter for other antenatal screening follow-up (principal); Z3A.24 24 weeks gestation of pregnancy
CPT/HCPCS: 76816

== ENCOUNTER → 2022-04-07 11:56 | Outpatient (CLI) | payer OTHER, SELFPAY ==
[2022-04-07 14:02] LABS: Hematocrit 31.6 % (36-46); Hemoglobin 10.8 g/dL (12.0-16.0)
[2022-04-07 14:47] LABS: GTT (PREG) 1 Hour PP 50gm Dose 103 mg/dL (76-139)
== END ==
PROVIDERS: PCP Family Medicine; Referring Provider Obstetrics & Gynecology; Visit Provider Obstetrics & Gynecology
DX: Z34.82 Encounter for supervision of other normal pregnancy, second trimester (principal); Z3A.26 26 weeks gestation of pregnancy
CPT/HCPCS: 36415; 82950; 85014; 85018

== ENCOUNTER 2022-04-25 09:59 | Emergency (ER) | payer OTHER, SELFPAY ==
[2022-04-25 10:10] VITALS: BP 118/69; PULSE 98; RESP 16; TEMP 36.9; O2SAT 97; BMI 27.9
[2022-04-25 10:16] VITALS: PULSE 90; O2SAT 95
[2022-04-25 10:17] VITALS: BP 113/65; PULSE 93; O2SAT 95
[2022-04-25 10:17] LABS: Add Manual Diff / Slide Review NO; Basophils Absolute Auto 100 /uL (0-100); Basophils Percent Auto 0.8 % (0-2); Eosinophils Absolute Auto 100 /uL (0-450); Eosinophils Percent Auto 0.9 % (2-4); Hematocrit 33.6 % (36-46); Hemoglobin 11.5 g/dL (12.0-16.0); Lymphocytes Absolute Auto 1700 /uL (1100-4500); Lymphocytes Percent Auto 16.2 % (25-40); Mean Corpuscular HGB Conc 34.2 % (30-36); Mean Corpuscular Hemoglobin 28.4 PG (26-34); Monocytes Absolute Auto 900 /uL (0-900); Monocytes Percent Auto 8.5 % (3-14); Neutrophils Absolute Auto 7900 /uL (1500-7000); Neutrophils Percent Auto 73.6 % (50-75); Platelet Count 143 X10^3/uL (150-400); Red Blood Cell Count 4.05 X10^6/uL (4.0-5.2); White Blood Cell Count 10.8 X10^3/uL (4.5-11.0)
[2022-04-25] MEDS: SODIUM CHLORIDE 0.9% 1,000 ML 1000 ML IV (10:18)
[2022-04-25] MEDS: ONDANSETRON 4 MG/2 ML INJ IV (10:18)
--- NOTE | 2022-04-25 10:28 | ED_ITS ---
HPI - Nausea/Vomiting/Diarrhea General Chief complaint: Nausea/Vomiting/Diarrhea Stated complaint: diarrhea/not feeling well Time Seen by Provider: 04/25/22 10:15 Source: patient Mode of arrival: Ambulatory Limitations: no limitations History of Present Illness HPI Narrative: Patient is a 27-year-old female that is approximately 30 weeks EGA who is here for evaluation of 5 days of diarrhea. Patient states that her daughter also has diarrhea. No fevers. No vomiting. Did have some cramping this morning but no vaginal bleeding no vaginal discharge. No recent travel. No recent antibiotics. Patient has not tried anything for the symptoms. Her daughter is currently in the walk-in clinic being evaluated but she was sent to the emergency department because of her status. Patient is tolerating o ral intake but states that she does not think it is enough to keep up with the diarrhea. She is being followed by OB. Related Data Home Medications Medication Instructions Recorded Confirmed cholecalciferol (vitamin D3) 125 125 mcg PO DAILY 11/12/21 04/07/22 mcg (5,000 unit) tablet Previous Rx's Medication Instructions Recorded ondansetron 8 mg disintegrating 8 mg PO Q8H PRN nausea and 11/05/21 tablet vomiting #20 tabs albuterol sulfate 90 mcg/actuation 2 puff inhalation Q4-6H PRN 11/12/21 aerosol inhaler (ProAir HFA) Respiratory Distress #6.7 grams hydrocodone 5 mg-acetaminophen 325 1 tab PO Q8H PRN pain #10 tabs 01/13/22 mg tablet valacyclovir 500 mg tablet 500 mg PO BID 3 days #6 tabs 03/09/22 valacyclovir 1 gram tablet 2,000 mg PO BID 1 day #4 tabs 03/26/22 (Valtrex) Allergies Allergy/AdvReac Type Severity Reaction Status Date / Time [place] And Derivatives Allergy Intermediate Numb lips, Verified 04/07/22 11:25 canker sores. Hives if used topically. mold Allergy Intermediate Triggers Verified 04/07/22 11:25 asthma. tree and shrub pollen Allergy Intermediate Triggers Verified 04/07/22 11:25 asthma. aquacell AdvReac Intermediate Rash Uncoded 04/07/22 11:25 Review of Systems Constitutional Constitutional: Reports system reviewed and no additional complaints, except as documented Gastrointestinal Gastrointestinal: Reports system reviewed and no additional complaints, except as documented Genitourinary Genitourinary: Reports system reviewed and no additional complaints, except as documented Integumentary/Breasts Skin/Breast: Reports system reviewed and no additional complaints, except as documented Hematologic/Lymphatic On Anticoagulants: No Patient History Medical History Abnormal Pap smear of cervix (~06/2019) ADHD (~2002) Anxiety (~2017) ASCUS with positive high risk HPV Asthma Bronchitis (~2008) Depression (~2017) 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 Grandfather Alcoholic Family estrangement Grandmother Family estrangement Grandfather Family estrangement Brother Depression Anxiety Hearing loss of both ears Social History marital status: number of children: 1 household members: spouse and children lives independently: Yes caregiver/support person: No housing: house pets and animals: Yes (1 dog, 1 cat. aware of Toxoplasmosis) education level: college ([employer] through [employer] degree.) occupational status: employed ([employer] current occupational exposures/hazards: Yes ( Pt has safety plan.) special atul needs: No seatbelt use: always water heater temp set < 120 deg: Yes (will check) working smoke detector in home: Yes fire extinguisher in home: Yes carbon monox detector in home: Yes firearms in home: Yes firearms unloaded and locked: Yes do you feel safe at home: Yes Smoking Status: Never smoker Tobacco: How many years used: 1 second hand exposure: No alcohol intake: former substance use type: former substance user and marijuana (Formerly vaping & edibles 2-3x/week to help insomnia or just weekend.) during the past year weight has: decreased > 10 lbs well-balanced diet: daily or most days daily servings fruits/ve-4 caffeine: Yes (200mg limit) Type(s) of exercise: walking frequency: 3-4 times per week duration: 30-45 minutes/day Smoking Status: Never smoker alcohol intake frequency: holidays/special occasions only Substance Use Type: does not use, former substance user and marijuana Exam Initial Vital Signs Initial Vital Signs: Vital Signs Temperature 98.4 F 04/25/22 10:10 Pulse Rate 98 H 04/25/22 10:10 Respiratory Rate 16 04/25/22 10:10 Blood Pressure 118/69 04/25/22 10:10 Pulse Oximetry 97 04/25/22 10:10 Oxygen Delivery Method 04/25/22 10:10 Const General: cooperative and healthy appearing HENMT Head: normal to inspection and normocephalic Resp Effort & Inspection: normal respiratory effort Auscultation: clear to auscultation bilaterally Cardio Rate: regular rate Rhythm: regular rhythm GI Other: Gravid abdomen Skin General: no rashes or lesions noted Neuro General: patient alert, patient awake, patient oriented x3 and moves all extremities Extrem General: normal to inspection and capillary refill normal Course Orders Ordered: ED Orders 04/25/22 10:08 Complete Blood Count AUTO DIFF Stat Comprehensive Metabolic Panel Stat Lipase Stat 04/25/22 10:13 GI Panel (Film Array) Stat 04/25/22 11:20 Urinalysis and Microscopic Stat Discontinued Medications Sodium Chloride (Normal Saline 0.9%) 1,000 mls @ 1,000 mls/hr IV BOLUS ONE Stop: 04/25/22 11:12 Last Infusion: 04/25/22 11:21 Dose: 0 mls/hr Documented By: Admin: 04/25/22 10:18 Dose: 1,000 mls/hr Documented By: ALICE Ondansetron HCl (Ondansetron 4 Mg/2 Ml Inj) 4 mg IV NOW ONE Stop: 04/25/22 10:13 Last Admin: 04/25/22 10:18 Dose: 4 mg Documented By: ALICE Vital Signs Vital signs: Vital Signs - 8 hr 04/25/22 10:10 Temperature 98.4 F Pulse Rate 98 H Respiratory Rate 16 Blood Pressure 118/69 Pulse Oximetry 97 Oxygen Delivery Method Room Air MDM - Nausea/Vomiting/Diarrhea Lab Data Result diagrams: 04/25/22 10:08 04/25/22 10:08 Labs: Lab Results 04/25/22 04/25/22 04/25/22 Range/Units 10:08 10:08 11:20 WBC 10.8 (4.5-11.0) X10^3/uL RBC 4.05 (4.0-5.2) X10^6/uL Hgb 11.5 L (12.0-16.0) g/dL Hct 33.6 L (36-46) % MCV 83.0 (80-100) fL MCH 28.4 (26-34) PG MCHC 34.2 (30-36) % RDW 15.0 H (11.6-14.8) % Plt Count 143 L (150-400) X10^3/uL Neut % (Auto) 73.6 (50-75) % Lymph % (Auto) 16.2 L (25-40) % [place] % (Auto) 8.5 (3-14) % Eos % (Auto) 0.9 L (2-4) % Baso % (Auto) 0.8 (0-2) % Neut # (Auto) 7900 H (5164-5964) /uL Lymph # (Auto) 1700 (1655-0819) /uL [place] # (Auto) 900 (0-900) /uL Eos # (Auto) 100 (0-450) /uL Baso # (Auto) 100 (0-100) /uL Sodium 136 L (137-145) mmol/L Potassium 3.6 (3.4-5.1) mmol/L Chloride 106 (98-107) mmol/L Carbon Dioxide 20 L (22-32) mmol/L BUN 6 L (7-17) mg/dL Creatinine 0.44 L (0.52-1.04) mg/dL Estimated GFR > 60 (>60) mL/min BUN/Creatinine Ratio 13.6 (6-22) Glucose 83 (70-100) mg/dL Calcium 8.2 L (8.4-10.2) mg/dL Total Bilirubin 0.2 (0.2-1.3) mg/dL AST 18 (14-36) IU/L ALT 13 (<35) IU/L Alkaline Phosphatase 106 (38-126) U/L Total Protein 6.5 (6.3-8.2) g/dL Albumin 3.4 L (3.5-5.0) g/dL Globulin 3.1 (1.7-4.1) g/dL Albumin/Globulin Ratio 1.1 (1.0-2.8) Lipase 24 (23-300) U/L Urine Color Yellow Urine Appearance Sl cloudy Urine pH 7.0 (4.5-8.0) Ur Specific [place] 1.010 (1.000-1.035) Urine Protein Trace H (Negative) Urine Glucose (UA) Negative (Negative) g/dL Urine Ketones Negative (NEGATIVE) Urine Occult Blood Negative (Negative) Urine Nitrate Negative (Negative) Urine Bilirubin Negative (NEGATIVE) Urine Urobilinogen 0.2 (0.2) E.U./dL Ur Leukocyte Esterase Trace H (NEGATIVE) Urine RBC 0-1/hpf (0-5/HPF) Urine WBC 1-5/hpf (0-5/HPF) Ur Squamous Epith Cells 10-30 /hpf H (0-5/HPF) Urine Bacteria Many (>30) H (None) Ur Culture Indicated? Cult not indicated MDM Narrative Medical decision making narrative: Patient was well-appearing. No indication of labor. Patient was given fluids. Tolerated oral intake. Has not been having any nausea. Was unable to provide us a stool sample. Plan will be is to discharge home without antibiotics. We did discuss antidiarrheal medicines and how she should avoid those during . Her daughter has very similar symptoms. No indication for antibiotics. Patient was given return precautions. She expressed understanding and agreement. Discharge Plan Departure Patient Disposition: Home Clinical Impression: Diarrhea Instructions: Diarrhea Activity Restrictions/Additional Instructions: It is important that you increase your fluid intake to help prevent dehydration. Antidiarrheal medicine such as Imodium/loperamide are recommended only for ?disabling ?diarrhea during . The guidelines recommend dietary changes and oral hydration. Contact your primary doctor and your OB doctor for a follow-up. Return to the emergency department for any new or worsening symptoms. Prescriptions: No Action ondansetron 8 mg tablet,disintegrating 8 mg PO Q8H PRN (Reason: nausea and vomiting) Qty: 20 4RF valacyclovir [Valtrex] 1 gram tablet 2,000 mg PO BID 1 Days Qty: 4 2RF valacyclovir 500 mg tablet 500 mg PO BID 3 Days Qty: 6 2RF cholecalciferol (vitamin D3) 125 mcg (5,000 unit) tablet 125 mcg PO DAILY albuterol sulfate [ProAir HFA] 90 mcg/actuation HFA aerosol inhaler 2 puff INHALATION Q4-6H PRN (Reason: Respiratory Distress) Qty: 6.7 2RF hydrocodone-acetaminophen 5-325 mg tablet 1 tab PO Q8H PRN (Reason: pain) Qty: 10 0RF Referrals: Berlin Maki MD [Primary Care Provider] -
[2022-04-25 10:29] LABS: Alanine Aminotransferase 13 IU/L (<35); Albumin 3.4 g/dL (3.5-5.0); Albumin Globulin Ratio 1.1 (1.0-2.8); Alkaline Phosphatase 106 U/L (38-126); Aspartate Aminotransferase 18 IU/L (14-36); BUN Creatinine Ratio 13.6 (6-22); Bilirubin Total 0.2 mg/dL (0.2-1.3); Blood Urea Nitrogen 6 mg/dL (7-17); Calcium 8.2 mg/dL (8.4-10.2); Carbon Dioxide 20 mmol/L (22-32); Chloride 106 mmol/L (98-107); Estimated Glomerular Filt Rate > 60 mL/min (>60); Globulin 3.1 g/dL (1.7-4.1); Glucose 83 mg/dL (70-100); HEMOLYSIS < 15 (0-50); Lipase 24 U/L (23-300); Potassium 3.6 mmol/L (3.4-5.1); Sodium 136 mmol/L (137-145); Total Protein 6.5 g/dL (6.3-8.2)
[2022-04-25 10:30] VITALS: BP 110/57; PULSE 79; O2SAT 96
[2022-04-25 11:00] VITALS: BP 113/68; PULSE 86; O2SAT 98
[2022-04-25 11:28] LABS: Appearance Urine UA SL CLOUDY; Bilirubin Urine UA NEGATIVE (NEGATIVE); Color Urine UA YELLOW; Glucose Urine UA NEGATIVE (Negative); Ketones Urine UA NEGATIVE (NEGATIVE); Leukocyte Esterase Urine UA TRACE (NEGATIVE); Nitrite Urine UA NEGATIVE (Negative); Occult Blood Urine UA NEGATIVE (Negative); Protein Urine UA TRACE (Negative); Urobilinogen Urine UA 0.2 E.U./dL (0.2)
[2022-04-25 11:41] LABS: Bacteria Urine Many (>30); Culture Indicated Urine Cult Not Indicated; RBC Urine 0-1/HPF (0-5/HPF); Squamous Epithelial Cell Urine 10-30 /HPF (0-5/HPF); WBC Urine 1-5/HPF (0-5/HPF)
[2022-04-25 12:32] VITALS: BP 116/70; PULSE 78; RESP 20; O2SAT 97
== END 2022-04-25 12:34 | disposition home or self-care (01) ==
PROVIDERS: Emergency Provider Emergency Medicine; PCP Family Medicine
DX: O26.93 Pregnancy related conditions, unspecified, third trimester (principal); R19.7 Diarrhea, unspecified; Z3A.30 30 weeks gestation of pregnancy
CPT/HCPCS: 36415; 80053; 81001; 83690; 85025; 96361; 96374; 99284; J2405

== ENCOUNTER → 2022-05-01 14:07 | Outpatient (CLI) | payer OTHER, SELFPAY ==
--- NOTE | 2022-05-01 14:08 | DI.US.S_ITS ---
PROCEDURE: US OB LIMITED INDICATIONS: growth US OUTSIDE/PRIOR DATING DATA: First dating scan (date and location): 11/18/2021. Estimated date of delivery (NEHEMIAS) from first dating scan: 06/30/2022. TECHNIQUE: Real-time scanning was performed of the fetus, with image documentation and biometric measurements. COMPARISON: [facility], OB FOLLOW UP, 03/10/2022, 9:46. [facility], OB LIMITED, 10/23/2020, 9:05. FINDINGS: General: A single living intrauterine gestation is present. Presentation: Vertex. Placenta: Placental position is anterior , without previa. Amniotic fluid index: 12.3 cm, normal range is 5-24 cm. Single deepest vertical pocket is 4.5 cm. heart rate: 141 beats per minute. Maternal cervical canal: 4.1 cm long. Normal lower limit is 2.5 cm. biometrics: Biparietal diameter: 30 weeks 5 days Head circumference: 32 weeks 4 days Abdominal circumference: 31 weeks 5 days Femur length: 31 weeks 4 days Clinically estimated gestational age: 31 weeks 3 days Composite gestational age from present scan: 31 weeks 5 days Estimated weight and percentile: 18 11 g, 46 percentile Other: Not applicable. IMPRESSION: Single living IUP redemonstrated and interval growth is normal. We strive to produce accurate, complete, and clear reports of imaging services. To assist us in improving patient care, this report was composed using standard report templates and voice recognition software. Therefore, it may contain abnormal punctuation, insertions and/or omissions. Occasional wrong-word or sound-alike substitutions may occur. Though we review the report and make efforts to correct it, we do recommend that the report be read carefully in proper context to recognize any text inaccuracies. Dictated by: Matthew DURON Interpreted: Elvis De Souza MD on 05/01/2022 at 16:37 Transcribed by: MALCOLM on 05/01/2022 at 16:38 Approved by: Elvis De Souza M.D. on 05/01/2022 at 17:10
== END ==
PROVIDERS: PCP Family Medicine; Referring Provider Obstetrics & Gynecology; Visit Provider Obstetrics & Gynecology
DX: O36.63X0 Maternal care for excessive fetal growth, third trimester, not applicable or unspecified (principal); Z3A.31 31 weeks gestation of pregnancy
CPT/HCPCS: 76815

== ENCOUNTER → 2022-05-04 10:39 | Outpatient (CLI) | payer OTHER, SELFPAY | PROVIDERS: PCP Family Medicine; Visit Provider Obstetrics & Gynecology | DX: O26.899 Other specified pregnancy related conditions, unspecified trimester (principal); R10.9 Unspecified abdominal pain; R39.15 Urgency of urination; Z3A.21 21 weeks gestation of pregnancy | CPT/HCPCS: 87086 ==